=== PATIENT | female | born 1945 | race Caucasian/White ===

== ENCOUNTER → 2018-04-19 11:28 | Outpatient (CLI) | payer OTHER, SELFPAY ==
--- NOTE | 2018-04-19 | DI.MG.S_ITS ---
BILATERAL DIGITAL SCREENING MAMMOGRAM 3D/2D WITH CAD: 04/19/2018 CLINICAL: Routine screening. Family history of breast cancer. Comparison is made to exams dated: 02/01/2017 mammogram, 08/02/2016 mammogram, and 07/07/2016 mammogram - [facility]. There are scattered fibroglandular elements in both breasts. Current study was also evaluated with a Computer Aided Detection (CAD) system. No significant masses, calcifications, or other findings are seen in either breast. There has been no significant interval change. IMPRESSION: NEGATIVE There is no mammographic evidence of malignancy. A 1 year screening mammogram is recommended. This exam was interpreted at Station ID: [id number]. NOTE: For mammograms, a report in lay terms will be sent to the patient. Approximately 15% of breast malignancies will not be visualized mammographically. In the management of a palpable breast mass, a negative mammogram must not discourage biopsy of a clinically suspicious lesion. Electronically Signed By: Raman simmons/dwayne:04/19/2018 16:50:39 letter sent: Normal Exam ACR BI-RADS Category 1: Negative 3341F
== END ==
PROVIDERS: Family Provider Family Medicine; Visit Provider Family Medicine
DX: Z12.31 Encounter for screening mammogram for malignant neoplasm of breast (principal); Z80.3 Family history of malignant neoplasm of breast
CPT/HCPCS: 77063; 77067

== ENCOUNTER → 2019-02-19 14:26 | Outpatient (CLI) | payer OTHER, SELFPAY ==
--- NOTE | 2019-02-19 14:31 | DI.RAD.S_ITS ---
PROCEDURE: XR LUMBAR SPINE 2-3V INDICATIONS: lumbar back pain TECHNIQUE: 3 views of the lumbar spine were acquired. COMPARISON: [facility], , -SPINE 2-3 VIEWS, 08/30/2012, 7:34. FINDINGS: Bones: 5 gyz-lio-grwouki vertebrae are present. There is abnormal levoscoliotic bony alignment centered at L3. No vertebral body compression fractures. No suspicious bony lesions. Soft tissues: Overlying bowel gas pattern is normal. No suspicious soft tissue calcifications. IMPRESSION: Degenerative disc disease and levoscoliosis appears mildly worsened from the comparison plain film imaging from 08/30/12. No compression fracture has developed. Spinal and foraminal stenosis would be suspected from L3 inferiorly. Dictated by: Dirk Morris M.D. on 02/19/2019 at 15:46 Approved by: Dirk Morris M.D. on 02/19/2019 at 15:47
[2019-02-19 17:05] LABS: Add Manual Diff / Slide Review NO; Basophils Absolute Auto 0 /uL (0-100); Basophils Percent Auto 0.5 % (0-2); Eosinophils Absolute Auto 100 /uL (0-450); Eosinophils Percent Auto 2.6 % (2-4); Hematocrit 35.1 % (36-46); Hemoglobin 11.9 g/dL (12.0-16.0); Lymphocytes Absolute Auto 1600 /uL (1100-4500); Lymphocytes Percent Auto 30.4 % (25-40); Mean Corpuscular HGB Conc 33.7 % (30-36); Mean Corpuscular Hemoglobin 32.7 PG (26-34); Mean Corpuscular Volume 97.1 fL (80-100); Monocytes Absolute Auto 600 /uL (0-900); Monocytes Percent Auto 12.1 % (3-14); Neutrophils Absolute Auto 2900 /uL (1500-7000); Neutrophils Percent Auto 54.4 % (50-75); Platelet Count 161 X10^3/uL (150-400); Red Blood Cell Count 3.62 X10^6/uL (4.0-5.2); White Blood Cell Count 5.3 X10^3/uL (4.5-11.0)
[2019-02-19 17:22] LABS: HEMOLYSIS < 15 (0-50); Iron 61 ug/dL (37-170)
[2019-02-19 17:37] LABS: Percent Iron Saturation 16 % (15-50); Total Iron Binding Capacity 384 ug/dL (265-497); Transferrin 313 mg/dL (206-381)
[2019-02-19 18:04] LABS: Ferritin 12.6 ng/mL (11.1-264)
[2019-02-19 18:18] LABS: Vitamin B12 840 pg/mL (239-931)
== END ==
PROVIDERS: Family Provider Family Medicine; PCP Family Medicine; Visit Provider Family Medicine
DX: M54.5 Low back pain (principal); M51.36 Other intervertebral disc degeneration, lumbar region; M41.86 Other forms of scoliosis, lumbar region; G89.29 Other chronic pain
CPT/HCPCS: 36415; 72100; 82607; 82728; 83540; 83550; 85025

== ENCOUNTER → 2019-03-08 14:38 | Outpatient (CLI) | payer OTHER, SELFPAY ==
--- NOTE | 2019-03-08 | DI.MRI.S_ITS ---
PROCEDURE: MR LUMBAR SPINE WO CON INDICATIONS: BACK PAIN TECHNIQUE: Noncontrast sagittal T1 spin echo and T2 fast echo, sagittal STIR, axial T1 and T2 fast spin echo through the lumbar spine. In cases with scoliosis, additional coronal T2 fast spin echo may be performed. COMPARISON: [facility], CR, XR LUMBAR SPINE 2-3V, 02/19/2019, 14:38. FINDINGS: Image quality: Diagnostic Alignment and Curvature: Moderate levoconvex lumbar scoliosis is seen. Minimal retrolisthesis is seen at the L3-L4 level. Minimal anterolisthesis is seen at L4-L5. Bone Marrow: Marrow is of normal overall signal. No acute vertebral body compression fractures. Spinal Cord: Conus medullaris terminates at the T12-L1 level. Visualized cord demonstrates normal signal and size. Paraspinous Soft Tissues: No paravertebral masses. T12-L1: Moderate loss of disc height is seen. Loss of disc signal is seen. No significant disc bulge is seen. No neural foraminal or central canal narrowing can be seen. L1-L2: Moderate loss of disc height is seen. Loss of disc signal is seen. Reactive marrow endplate changes are seen which are hypointense on T1-weighted imaging and hyperintense on T2 weighted imaging, which is most consistent with edema (Modic type I changes). Moderate disc bulge is seen, which is eccentric to the left. There is a central/left disc protrusion seen. Pwgp-dl-jjmsgovd facet hypertrophy is seen, with associated moderate hypertrophy of the ligamentum. There is moderate to severe left-sided neural foraminal narrowing, with associated compression upon the exiting left L1 nerve root. Mild to moderate right-sided neural foraminal narrowing is seen. Djnk-mm-zmstllse central canal narrowing is seen. L2-L3: Moderate to severe loss of disc height is seen at this level. There is loss of disc signal. Reactive marrow endplate changes are seen which are hypointense on T1-weighted imaging and hyperintense on T2 weighted imaging, which is most consistent with edema (Modic type I changes). At least moderate disc bulge is seen. Moderate facet joint hypertrophy is seen. There is associated moderate hypertrophy of the ligamentum flavum. Moderate bilateral neural foraminal narrowing is seen. Moderate central canal narrowing is seen. L3-L4: Moderate to severe loss of disc height and disc signal are seen. Moderate disc bulge is seen, which is eccentric to the right. There is moderate left-sided and moderate to severe right-sided neural foraminal narrowing seen. There is a degree of compression seen upon the exiting right L3 nerve root. Zgll-dh-nudroqse central canal narrowing is seen. L4-L5: Moderate to severe loss of disc height and disc signal are seen at this level. Moderate disc bulge is seen, which is eccentric to the right. Moderate facet joint hypertrophy is seen. There is at least moderate bilateral nerve narrowing seen. There is a degree of compression seen upon the exiting nerve roots. Moderate central canal narrowing is seen. L5-S1: The disc height is well-preserved. Loss of disc signal is seen at this level. Mild generalized disc bulge is seen. There is moderate right-sided and moderate to severe left-sided facet hypertrophy seen. There is mild right-sided and moderate to severe left-sided neural foraminal narrowing seen. There is a degree of compression seen upon the exiting left L5 nerve root. Minimal to mild central canal narrowing is seen. IMPRESSION: Moderate dextroconvex scoliosis is seen. Multiple levels of relatively prominent lumbar spine degenerative change are seen. Dictated by: Preston Thomason M.D. on 03/10/2019 at 8:19 Approved by: Preston Thomason M.D. on 03/10/2019 at 8:25
== END ==
PROVIDERS: Family Provider Family Medicine; PCP Family Medicine; Visit Provider Physical Medicine & Rehabilitation
DX: M54.9 Dorsalgia, unspecified (principal); M47.816 Spondylosis without myelopathy or radiculopathy, lumbar region; M47.817 Spondylosis without myelopathy or radiculopathy, lumbosacral region; M41.86 Other forms of scoliosis, lumbar region
CPT/HCPCS: 72148

== ENCOUNTER → 2019-04-25 09:00 | Outpatient (CLI) | payer OTHER, SELFPAY ==
--- NOTE | 2019-04-25 | DI.MG.S_ITS ---
BILATERAL DIGITAL SCREENING MAMMOGRAM 3D/2D WITH CAD: 04/25/2019 CLINICAL: Routine screening. Family history of breast cancer. Comparison is made to exams dated: 04/19/2018 mammogram, 02/01/2017 mammogram, 08/02/2016 mammogram, 06/23/2016 mammogram, 09/07/2014 mammogram, and 08/28/2013 mammogram - [facility]. There are scattered fibroglandular elements in both breasts. Current study was also evaluated with a Computer Aided Detection (CAD) system. There are benign vascular calcifications in both breasts. There also is a benign biopsy clip in the right breast. No significant masses, calcifications, or other findings are seen in either breast. There has been no significant interval change. IMPRESSION: There is no mammographic evidence of malignancy. A 1 year screening mammogram is recommended. This exam was interpreted at Station ID: [id number]. NOTE: For mammograms, a report in lay terms will be sent to the patient. Approximately 15% of breast malignancies will not be visualized mammographically. In the management of a palpable breast mass, a negative mammogram must not discourage biopsy of a clinically suspicious lesion. Electronically Signed By: Peyman mcduffie/dwayne:04/25/2019 13:31:34 letter sent: Normal Exam ACR BI-RADS Category 2: Benign Finding(s) 3342F
== END ==
PROVIDERS: PCP Family Medicine; Visit Provider Family Medicine
DX: Z12.31 Encounter for screening mammogram for malignant neoplasm of breast (principal); Z80.3 Family history of malignant neoplasm of breast
CPT/HCPCS: 77063; 77067

== ENCOUNTER → 2020-06-03 11:35 | Outpatient (CLI) | payer MEDICARE, SELFPAY ==
--- NOTE | 2020-06-03 11:37 | DI.RAD.S_ITS ---
PROCEDURE: XR HIP W PEL IF DONE LT 2V INDICATIONS: left hip pain TECHNIQUE: AP pelvis with lateral view(s) of the left hip(s). COMPARISON: [facility], , HIP 2V LEFT, 08/30/2012, 7:34. [facility], , HIP 2V LEFT, 11/12/2008, 13:57. FINDINGS: Bones: No fractures or dislocations. Pelvic ring appears intact. No suspicious bony lesions. Soft tissues: The visualized bowel gas pattern is normal. No suspicious soft tissue calcifications. IMPRESSION: No trauma found, source of left hip pain not seen. Dictated by: Dirk Morris M.D. on 06/03/2020 at 12:22 Approved by: Dirk Morris M.D. on 06/03/2020 at 12:22
== END ==
PROVIDERS: PCP Family Medicine; Referring Provider Family Medicine; Visit Provider Family Medicine
DX: M25.552 Pain in left hip (principal)
CPT/HCPCS: 73502

== ENCOUNTER → 2020-06-30 13:00 | Outpatient (CLI) | payer MEDICARE, SELFPAY ==
--- NOTE | 2020-06-30 14:04 | DIET.PN ---
Dietary Progress Note Assessment: 74y F referred to nutrition for HLD c PAD Pt has had elevated cholesterol for several years, but is going up, recent PAD scan was positive for reduced circulation in L leg. Pt has px in L leg, was seeing music director weekly, now seeing PT 2x/w. Pt has been avoiding dairy, choosing plant based options instead which has led to some weight loss that pt is happy about. Pt walks 2mi/d in late afternoon. Was going to pool 5d/w but this stopped because of Covid19. Usual Day: wakes 530am drinks glass water and 2c coffee c homemade keto creamer (containing cinnamon and turmeric) L: apple or celery c [place] pb D(530): large salad c cucumbers, tomatoes, nunes peppers, leftover salmon or soup such as homemade minestrone or vegetable soup HT: 5'5 WT: 134# (intentional 5-10# wt loss in past 8mo) BMI: 22.3 Labs: TC 225 H, LDL 140 H, HDL 71 Nutrition Diagnosis: altered nutrition related laboratory values (lipid panel) r/t inadequate intake of soluble fiber aeb TC 225, LDL 140, pt diet recall is healthy yet not hitting sarah for fiber intake. Interventions: 1. Discussed Cholesterol, importance, function, factors influencing elevated levels and how to reduce levels through lifestyle. 2. Discussed high saturated fat and cholesterol foods, to reduce saturated fat and moderate high cholesterol foods in pts case: shrimp and eggs. 3. Discussed soluble fiber, food sources, and how it can reduce LDL. Pt goal is 21g/d and will log food for 1w to assess current fiber intake and start adding in more like beans, rayshawn seeds, flax seed. EER: 21g fiber per day Pt planning to take online community ed nutrition classes offered by [facility]
== END ==
PROVIDERS: PCP Family Medicine; Referring Provider Family Medicine; Visit Provider Family Medicine
DX: E78.5 Hyperlipidemia, unspecified (principal); M79.605 Pain in left leg; Z71.3 Dietary counseling and surveillance
CPT/HCPCS: 97802

== ENCOUNTER → 2020-07-24 13:19 | Outpatient (CLI) | payer MEDICARE, SELFPAY ==
[2020-07-26 09:25] LABS: COVID19 Sendout Not Detected (Not Detect)
== END ==
PROVIDERS: PCP Family Medicine; Visit Provider Nurse Practitioner
DX: Z11.59 Encounter for screening for other viral diseases (principal)
CPT/HCPCS: 87635

== ENCOUNTER → 2020-08-05 06:37 | Outpatient (CLI) | payer MEDICARE, SELFPAY ==
[2020-08-05 09:44] LABS: Cholesterol 116 mg/dL (140-199); HDL Cholesterol 64 mg/dL (40-60); LDL Cholesterol Calculated 37 mg/dL (<100); Triglycerides 76 mg/dL (35-150)
== END ==
PROVIDERS: PCP Family Medicine; Referring Provider Family Medicine; Visit Provider Family Medicine
DX: E78.5 Hyperlipidemia, unspecified (principal); M25.552 Pain in left hip
CPT/HCPCS: 36415; 80061

== ENCOUNTER → 2020-08-23 09:26 | Outpatient (CLI) | payer MEDICARE, SELFPAY ==
[2020-08-23 23:10] LABS: COVID19 Sendout Not Detected (Not Detect)
== END ==
PROVIDERS: PCP Family Medicine; Visit Provider Physician Assistant
DX: Z11.59 Encounter for screening for other viral diseases (principal)
CPT/HCPCS: 87635

== ENCOUNTER 2020-08-26 08:20 | Outpatient (CLI) | payer MEDICARE, SELFPAY ==
[2020-08-26] VITALS (8 sets, daily range): BP systolic 121–164; BP diastolic 58–95; PULSE 61–69; RESP 10–17; TEMP 36.5; O2SAT 95–100
--- NOTE | 2020-08-26 08:23 | DI.RAD.S_ITS ---
PROCEDURE: PAIN L/SI FACET INJ/BLK 1STL INDICATIONS: SPONDYLOSIS COMPARISON: [facility], , LUMBAR SPINE INTERIAMINAR, 05/05/2019, 10:07. FINDINGS: Fluoroscopic spot filming was performed to verify placement of spinal needles on the left at the L3, L4, L5, and S1 level(s), as labeled on the films. Appropriate location(s) of the needle tip(s) was confirmed by injection of iodinated contrast. IMPRESSION: Intraprocedural examination within normal limits. Dictated by: Preston Thomason M.D. on 08/26/2020 at 9:35 Approved by: Preston Thomason M.D. on 08/26/2020 at 9:36
[2020-08-26] MEDS: MIDAZOLAM 5 MG/5 ML VIAL IV (09:35)
[2020-08-26] MEDS: fentaNYL 100 MCG/2 ML INJ 50 MCG IV (09:35)
[2020-08-26] MEDS: IOPAMIDOL 15 ML VIAL 3 ML INJ (09:43)
[2020-08-26] MEDS: BUPIVACAINE 0.5% (PF) VIAL 5 ML INJ (09:43)
[2020-08-26] MEDS: LIDOCAINE 1% 20 ML 10 ML INJ (09:43)
--- NOTE | 2020-08-26 09:50 | PM.PROC.IR.1 ---
Date/Time/Diagnoses Date of procedure: 08/26/20 Time of procedure: 09:50 Pre-procedure diagnosis: 1. FACET ARTHROPATHY Post-procedure diagnosis: same Procedure Notes Procedure: 1. Left L3, L4, L5 and S1 MB BLOCKS Indications: Jany is referred by Dr. Israel for treatment of Left Axial LBP. Physician: Lokesh Rod Total Fluoroscopy time (seconds): 6 Total sedation minutes: 13 Complications: none Procedure in detail & Post-procedure care: DESCRIPTION OF PROCEDURE Fluoroscopically guided, contrast-controlled left L4, L5 and S1 medial branch blocks with 0.5cc of 0.5% Marcaine. Following review of allergy and review of potential side effects and complications, including, but not necessarily limited to, infection, allergic reaction, local tissue breakdown, nerve injury, paralysis, stroke and possible , the patient indicated that the patient understood and agreed to proceed. An informed consent document was signed by the patient, witnessed by a nurse, and placed in the patient's chart. After review of previous anaesthesic history and IV conscious sedation the patient was deemed safe to proceed with today?s procedure with IV conscious sedation as ASA class II designation. Safety time-out was performed to confirm patient ID, procedure to be performed and site of procedure. IV sedation was accomplished with a combination of 2mg of Versed and 50mcg of Fentanyl was administered by the RN after DO order, titrated to patient comfort during the course of the procedure while the patient remained responsive to all verbal commands. In the prone position, following sterile prep and drape of the lumbar region, the left L4, L5 and S1 anatomical location of the medial branch of the dorsal ramus was identified fluoroscopically. Subsequently an anesthetic skin wheal using 1% lidocaine solution was initiated at each of the anatomical spots. Subsequently then a 22-gauge 3.5-inch spinal needle was atraumatically introduced and advanced under fluoroscopic guidance at each of the corresponding sites at the left L4, L5 and S1 MB. After negative aspiration, 0.2cc of Isovue 200 was injected, confirming placement without vascular or intrathecal uptake. Subsequently then 0.5cc of 0.5% Marcaine solution was injected at each of the corresponding sites at the left L4, L5 and S1 medial branch locations. The patient tolerated the procedure well without signs or symptoms of complications. The patient tolerated the procedure well without signs or symptoms of complications prior to transfer to the recovery area continued monitoring without incident. Post-procedure, the patient was monitored initiating provocative activities to measure the amount of relief from block of the facetogenic pain. The patient reported a VAS of 7 prior to the procedure and a post-procedure VAS of 1. It has been a pleasure to assist in the diagnostic and therapeutic care of your patient. POST OP INSTRUCTIONS The patient was provided with a Pain Log to complete over the next several hours and subsequent days prior to the patient's follow up with the ordering physician. If the patient has construction lineman relief to the solution applied, then they may be a candidate for medial branch rhizotomy. The patient is aware, was provided, once again, with a Pain Log and will follow up with the referring physician for review and clinical correlation.
--- NOTE | 2020-08-26 10:20 | PC.NURSE ---
Pt ambulated independently prior to Discharge. IV removed. Tolerated cookies and water. 0/10 pain.
== END 2020-08-26 10:10 | disposition home or self-care (01) ==
LOC: RAD 08:22
PROVIDERS: PCP Family Medicine; Referring Provider Physical Medicine & Rehabilitation; Visit Provider Physical Medicine & Rehabilitation
DX: M47.816 Spondylosis without myelopathy or radiculopathy, lumbar region (principal); M47.817 Spondylosis without myelopathy or radiculopathy, lumbosacral region; M54.5 Low back pain
CPT/HCPCS: 64493; 64494; 64495; 99152; J2250; J3010

== ENCOUNTER → 2020-09-09 08:14 | Outpatient (CLI) | payer MEDICARE, SELFPAY ==
--- NOTE | 2020-09-09 08:18 | DI.RAD.S_ITS ---
PROCEDURE: XR LUMBAR SPINE MIN 4V INDICATIONS: low back pain TECHNIQUE: 5 views of the lumbar spine were acquired. COMPARISON: [facility], CR, XR LUMBAR SPINE 2-3V, 02/19/2019, 14:38. [facility], CR, L-SPINE 2-3 VIEWS, 08/30/2012, 7:34. FINDINGS: Bones: Five nonrib-bearing vertebrae are present. There is prominent levo scoliotic bony alignment centered at L3. No vertebral body compression fractures. No suspicious bony lesions. Degenerative disc disease along the middle and lower thirds of the lumbosacral spine is moderately severe. Facet osteoarthritis also is moderately severe and osteophytes project to narrow the neural foramen. The exact degree of narrowing is not established due to overlap of bowel and osteophytic margins over much of the lumbosacral spine. Soft tissues: Overlying bowel gas pattern is normal. No suspicious soft tissue calcifications. Oblique images: No pars defects. IMPRESSION: Moderately severe to severe degenerative disc disease associated with convex leftward scoliosis and prominent osteophyte formation along the middle and lower thirds of the lumbosacral spine. As discussed the oblique views do not allow accurate assessment for degree of spinal and foraminal stenosis due to overlap of osteophytes and bowel content. Dictated by: Dirk Morris M.D. on 09/09/2020 at 9:08 Approved by: Dirk Morris M.D. on 09/09/2020 at 9:09
== END ==
PROVIDERS: PCP Family Medicine; Referring Provider Physical Medicine & Rehabilitation; Visit Provider Physical Medicine & Rehabilitation
DX: M54.5 Low back pain (principal); M25.552 Pain in left hip; M47.817 Spondylosis without myelopathy or radiculopathy, lumbosacral region; M51.36 Other intervertebral disc degeneration, lumbar region; M41.86 Other forms of scoliosis, lumbar region; M41.9 Scoliosis, unspecified
CPT/HCPCS: 72110; 99214

== ENCOUNTER → 2020-09-27 10:46 | Outpatient (CLI) | payer MEDICARE, SELFPAY ==
[2020-09-27 12:38] LABS: COVID19 -Nasal RAPID Negative (Negative)
== END ==
PROVIDERS: PCP Family Medicine; Visit Provider Physical Medicine & Rehabilitation
DX: Z11.59 Encounter for screening for other viral diseases (principal)
CPT/HCPCS: 87635; C9803

== ENCOUNTER 2020-09-28 07:34 | Outpatient (CLI) | payer MEDICARE, SELFPAY ==
[2020-09-28] VITALS (8 sets, daily range): BP systolic 141–172; BP diastolic 63–81; PULSE 52–66; RESP 11–17; TEMP 36.1; O2SAT 99–100
--- NOTE | 2020-09-28 07:35 | DI.RAD.S_ITS ---
PROCEDURE: PAIN SI JOINT INJECTION INDICATIONS: SACROCOCCYGEAL DISORDER COMPARISON: None. FINDINGS: Fluoroscopic spot filming was performed to verify placement of spinal needles at the left inferior sacroiliac joint level, as labeled on the films. Appropriate location(s) of the needle tip(s) was confirmed by injection of iodinated contrast. IMPRESSION: Normal needle tip localization for left inferior sacroiliac joint steroid injection. Dictated by: Dirk Morris M.D. on 09/28/2020 at 9:18 Approved by: Dirk Morris M.D. on 09/28/2020 at 9:19
[2020-09-28] MEDS: MIDAZOLAM 5 MG/5 ML VIAL IV (08:25)
[2020-09-28] MEDS: BETAMETHASONE 30 MG/5 ML MDV 12 MG INJ (08:35)
[2020-09-28] MEDS: IOPAMIDOL 15 ML VIAL 3 ML INJ (08:35)
[2020-09-28] MEDS: BUPIVACAINE 0.5% (PF) VIAL 2 ML INJ (08:35)
--- NOTE | 2020-09-28 08:37 | PM.PROC.IR.1 ---
Date/Time/Diagnoses Date of procedure: 09/28/20 Time of procedure: 08:37 Pre-procedure diagnosis: Sacroiliac Joint Pain/DJD Post-procedure diagnosis: same Procedure Notes Procedure: Fluoroscopically guided contrast controlled left sacroiliac joint injection Indications: Jany is referred by Dr. Israel for treatment of left sacroiliac joint DJD Physician: Lokesh Rod Total Fluoroscopy time (seconds): 5 Total sedation minutes: 10 Complications: none Procedure in detail & Post-procedure care: DESCRIPTION OF PROCEDURE Fluoroscopic guided, contrast controlled left sacroiliac joint injection Following review of allergies and review of potential side effects and complications, including, but not necessarily limited to, infection, allergic reaction, local tissue breakdown, temporary as well as permanent nerve injury, paralysis, stroke and possible , the patient indicated that they understood and agreed to proceed. An informed consent was signed by the patient, witnessed by a nurse, and placed in the patient's chart. Additionally, other treatment options including modalities, medications, and physical therapy were reviewed with the patient. After review of previous anaesthesic history and IV conscious sedation the patient was deemed safe to proceed with today?s procedure with IV conscious sedation as ASA class II designation. Safety time-out was performed to confirm patient ID, procedure to be performed and site of procedure. IV sedation was accomplished with a combination of 2mg of Versed administered by the RN after DO order, titrated to patient comfort during the course of the procedure while the patient remained responsive to all verbal commands. In the prone position following sterile prep and drape of the pelvic region, the hyper lucency on in the inferior aspect of the left sacroiliac joint was identified fluoroscopically the skin was anesthetized be a 25 gauge 1 eventual with approximately 2cc of 1% lidocaine solution. At this point, a 22 gauge 3inch spinal needle was atraumatically introduced and advanced under fluoroscopic guidance into the inferior aspect of the left sacroiliac joint. Following negative aspiration, approximately 0.3cc of Isovue-300 was injected confirming intra-articular placement without vascular uptake. Radiographic data, including multiple fluoroscopic views of the pelvis, reveals a spinal needle in the left sacroiliac joint hyper lucent zone. Subsequent view show flow contrast tear superiorly and inferiorly within the joint capsule without vascular intrathecal uptake. At this point a total of 1cc or 0.5% Marcaine was combined with 1cc of 6mg of betamethasone was injected without incident. The patient tolerated the procedure well without signs or symptoms of complications prior to transfer to the recovery area for further monitoring. The patient was then transferred to the recovery area with a bur observed for an appropriate time after the injection. The patient reverted a vas score of 7 prior to the procedure and postprocedure vas of 1. POSTOP INSTRUCTIONS The patient was provided with a pain like to continue to record the patient's response to the target specific procedure prior to the patient's follow-up visit with the referring physician. Additionally, specific post injection care instructions and a contact number to our office were provided if concerns arise regarding the possible complications associated with procedure are suspected.
== END 2020-09-28 09:02 | disposition home or self-care (01) ==
LOC: RAD 07:34
PROVIDERS: PCP Family Medicine; Referring Provider Family Medicine; Visit Provider Physical Medicine & Rehabilitation
DX: M53.3 Sacrococcygeal disorders, not elsewhere classified (principal); M46.1 Sacroiliitis, not elsewhere classified
CPT/HCPCS: 27096; 99152; J0702; J2250; J3010

== ENCOUNTER → 2020-12-13 07:59 | Outpatient (CLI) | payer MEDICARE, SELFPAY ==
--- NOTE | 2020-12-13 08:01 | DI.MG.S_ITS ---
BILATERAL DIGITAL SCREENING MAMMOGRAM 3D/2D WITH CAD: 12/13/2020 CLINICAL: Routine screening. Family history of breast cancer. Comparison is made to exams dated: 04/25/2019 mammogram, 04/19/2018 mammogram, and 06/23/2016 mammogram - [facility]. There are scattered fibroglandular elements in both breasts. Current study was also evaluated with a Computer Aided Detection (CAD) system. There are benign vascular calcifications in both breasts. There also is a biopsy clip in the right breast. No significant masses, calcifications, or other findings are seen in either breast. There has been no significant interval change. IMPRESSION: BENIGN There is no mammographic evidence of malignancy. A 1 year screening mammogram is recommended. This exam was interpreted at Station ID: [id number]. NOTE: For mammograms, a report in lay terms will be sent to the patient. Approximately 15% of breast malignancies will not be visualized mammographically. In the management of a palpable breast mass, a negative mammogram must not discourage biopsy of a clinically suspicious lesion. Electronically Signed By: Dennys Rogers M.D., jr/dwayne:12/13/2020 08:44:51 letter sent: Normal Exam ACR BI-RADS Category 2: Benign Finding(s) 3342F
[2020-12-13 09:03] LABS: Basophils Absolute Auto 0 /uL (0-100); Basophils Percent Auto 0.6 % (0-2); Eosinophils Absolute Auto 100 /uL (0-450); Eosinophils Percent Auto 2.2 % (2-4); Hematocrit 38.6 % (36-46); Hemoglobin 13.1 g/dL (12.0-16.0); Lymphocytes Absolute Auto 1500 /uL (1100-4500); Lymphocytes Percent Auto 37.4 % (25-40); Mean Corpuscular Hemoglobin 34.3 PG (26-34); Monocytes Absolute Auto 1100 /uL (0-900); Monocytes Percent Auto 28.3 % (3-14); Neutrophils Absolute Auto 1300 /uL (1500-7000); Neutrophils Percent Auto 31.5 % (50-75); Platelet Count 118 X10^3/uL (150-400); Red Blood Cell Count 3.82 X10^6/uL (4.0-5.2); Red Cell Distribution Width 13.5 % (11.6-14.8)
[2020-12-13 09:06] LABS: Add Manual Diff / Slide Review SLIDE REVIEW
[2020-12-13 09:20] LABS: Alanine Aminotransferase 20 IU/L (<35); Albumin 4.1 g/dL (3.5-5.0); Albumin Globulin Ratio 1.5 (1.0-2.8); Alkaline Phosphatase 65 U/L (38-126); Aspartate Aminotransferase 37 IU/L (14-36); BUN Creatinine Ratio 26.7 (6-22); Bilirubin Total 0.3 mg/dL (0.2-1.3); Blood Urea Nitrogen 20 mg/dL (7-17); Carbon Dioxide 32 mmol/L (22-32); Chloride 102 mmol/L (98-107); Cholesterol 150 mg/dL (140-199); Estimated Glomerular Filt Rate > 60.0 mL/min (>60); Globulin 2.8 g/dL (1.7-4.1); Glucose 100 mg/dL (80-110); HDL Cholesterol 64 mg/dL (40-60); HEMOLYSIS < 15 (0-50); LDL Cholesterol Calculated 68 mg/dL (<100); Potassium 4.4 mmol/L (3.4-5.1); Sodium 136 mmol/L (137-145); Total Protein 6.9 g/dL (6.3-8.2); Triglycerides 91 mg/dL (35-150)
[2020-12-13 09:46] LABS: TSH w/ Reflex to FT4 1.86 uIU/mL (0.47-4.68)
[2020-12-13 12:56] LABS: Macrocytosis 2+; Platelet Estimate Decreased on smear
== END ==
PROVIDERS: PCP Family Medicine; Referring Provider Family Medicine; Visit Provider Family Medicine
DX: Z12.31 Encounter for screening mammogram for malignant neoplasm of breast (principal); Z80.3 Family history of malignant neoplasm of breast; E78.5 Hyperlipidemia, unspecified; G47.00 Insomnia, unspecified; I70.209 Unspecified atherosclerosis of native arteries of extremities, unspecified extremity
CPT/HCPCS: 36415; 77063; 77067; 80053; 80061; 84443; 85025

== ENCOUNTER → 2021-10-17 09:47 | Outpatient (CLI) | payer MEDICARE, SELFPAY ==
--- NOTE | 2021-10-17 09:48 | DI.RAD.S_ITS ---
PROCEDURE: XR DEXA AXIAL SKELETON INDICATIONS: Osteopenia; loss of height, kyphosis COMPARISON: None. FINDINGS: This blank DEXA report has been sent in error by the PACS system. The correct and complete report will be forthcoming in 1-2 days. Thank you for your patience and understanding. Dictated by: Starla Galvan MD, PhD on 10/17/2021 at 16:48 Approved by: Starla Galvan MD, PhD on 10/17/2021 at 16:48
== END ==
PROVIDERS: PCP Family Medicine; Referring Provider Physician Assistant; Visit Provider Physician Assistant
DX: M85.851 Other specified disorders of bone density and structure, right thigh (principal); Z78.0 Asymptomatic menopausal state; M40.209 Unspecified kyphosis, site unspecified; Z87.891 Personal history of nicotine dependence; Z82.62 Family history of osteoporosis
CPT/HCPCS: 77080

== ENCOUNTER → 2021-12-19 08:27 | Outpatient (CLI) | payer MEDICARE, SELFPAY ==
--- NOTE | 2021-12-19 | DI.MG.S_ITS ---
BILATERAL DIGITAL SCREENING MAMMOGRAM 3D/2D WITH CAD: 12/19/2021 CLINICAL: Routine screening. Comparison is made to exams dated: 12/19/2021 mammogram, 04/25/2019 mammogram, 12/13/2020 mammogram, and 04/19/2018 mammogram - [facility]. There are scattered fibroglandular elements in both breasts. Current study was also evaluated with a Computer Aided Detection (CAD) system. There are benign vascular calcifications in both breasts. There also is a biopsy clip in the right breast. No significant masses, calcifications, or other findings are seen in either breast. There has been no significant interval change. IMPRESSION: BENIGN There is no mammographic evidence of malignancy. A 1 year screening mammogram is recommended. This exam was interpreted at Station ID: [id number]. NOTE: For mammograms, a report in lay terms will be sent to the patient. Approximately 15% of breast malignancies will not be visualized mammographically. In the management of a palpable breast mass, a negative mammogram must not discourage biopsy of a clinically suspicious lesion. Electronically Signed By: George Garcia acr/penrad:12/19/2021 12:55:30 letter sent: Normal Exam ACR BI-RADS Category 2: Benign Finding(s) 3342F
== END ==
PROVIDERS: PCP Family Medicine; Referring Provider Family Medicine; Visit Provider Family Medicine
DX: Z12.31 Encounter for screening mammogram for malignant neoplasm of breast (principal)
CPT/HCPCS: 77063; 77067

== ENCOUNTER → 2022-05-16 14:10 | Outpatient (CLI) | payer MEDICARE, SELFPAY ==
--- NOTE | 2022-05-16 14:11 | DI.RAD.S_ITS ---
PROCEDURE: XR SHOULDER LT MIN 2V INDICATIONS: Left anterior shoulder pain TECHNIQUE: <3 views of the shoulder were acquired. COMPARISON: [facility], , SHOULDER MINIMUM 2VIEW RIGHT, 09/04/2007, 14:05. FINDINGS: Bones: No fractures or dislocations. No suspicious bony lesions. Visualized ribs appear intact. Mild acromioclavicular and glenohumeral osteoarthritis. Soft tissues: No suspicious soft tissue calcifications. IMPRESSION: Mild acromioclavicular and glenohumeral osteoarthritis. No acute findings. Dictated by: Chris Sharpe M.D. on 05/17/2022 at 7:06 Approved by: Chris Sharpe M.D. on 05/17/2022 at 7:08
--- NOTE | 2022-05-16 14:11 | DI.MG.S_ITS ---
UNILATERAL LEFT DIGITAL DIAGNOSTIC MAMMOGRAM 3D/2D: 05/16/2022 CLINICAL: Anterior shoulder/axillary mass. Comparison is made to exams dated: 12/19/2021 mammogram, 12/13/2020 mammogram, 04/25/2019 mammogram, and 04/19/2018 mammogram - [facility]. There are scattered fibroglandular elements in left breast. No significant masses, calcifications, or other findings are seen in the breast. IMPRESSION: INCOMPLETE: NEEDS ADDITIONAL IMAGING EVALUATION No mammographic evidence of malignancy. A targeted ultrasound is recommended for the left breast palpable abnormality and will immediately follow. Based on the Tyrer Cuzick model (a risk assessment model) the patient's lifetime risk is 3.9% and her 10 year risk is 0.0%. According to the ACR, ACS, and NCCN guidelines, an annual breast MRI exam along with mammogram is recommended if the patient's lifetime risk is 20% or greater. This exam was interpreted at Station ID: [id number]. NOTE: For mammograms, a report in lay terms will be sent to the patient. Approximately 15% of breast malignancies will not be visualized mammographically. In the management of a palpable breast mass, a negative mammogram must not discourage biopsy of a clinically suspicious lesion. Electronically Signed By: Viet Winkler M.D. slc/:05/16/2022 14:59:41 ACR BI-RADS Category 0: Incomplete 3340F
--- NOTE | 2022-05-16 14:11 | DI.US.S_ITS ---
LIMITED ULTRASOUND OF LEFT BREAST AND AXILLA: 05/16/2022 CLINICAL: Palpable left axilla lump. Comparison is made to exams dated: 05/16/2022 mammogram, 12/19/2021 mammogram, 12/13/2020 mammogram, and 04/25/2019 mammogram - [facility]. Color flow and real-time ultrasound of the left breast axilla were performed. Hassan scale images of the real-time examination were reviewed. There is a 3 cm x 2.9 cm x 0.6 cm oval lipoma with a circumscribed margin in the left axillary tail. This oval lipoma is isoechoic. This correlates as palpated. Color flow imaging demonstrates that there is vascularity present. No significant abnormalities were seen sonographically in the left axilla. IMPRESSION: BENIGN There is no sonographic evidence of malignancy. Palpable abnormality corresponds to a benign 3 cm oval lipoma. Exam findings were conveyed to the patient. Patient is advised to monitor for significant change. Clinical follow-up as needed. A 1 year screening mammogram is recommended. Future imaging is recommended as follows: 12/20/2022 screening mammogram. This exam was interpreted at Station ID: [id number]. Electronically Signed By: Viet Winkler M.D. [facility] [place]/:05/16/2022 15:36:16 Entry: - 05/17/2022 11:18:22 letter sent: Normal Exam Ultrasound BI-RADS: 2 Benign
== END ==
PROVIDERS: PCP Family Medicine; Referring Provider Physician Assistant; Visit Provider Physician Assistant
DX: N63.32 Unspecified lump in axillary tail of the left breast (principal); D17.1 Benign lipomatous neoplasm of skin and subcutaneous tissue of trunk; M25.512 Pain in left shoulder; M19.012 Primary osteoarthritis, left shoulder; R92.8 Other abnormal and inconclusive findings on diagnostic imaging of breast
CPT/HCPCS: 73030; 76882; 77065; G0279

== ENCOUNTER → 2022-07-10 12:33 | Outpatient (CLI) | payer MEDICARE, SELFPAY ==
--- NOTE | 2022-07-10 12:35 | DI.RAD.S_ITS ---
PROCEDURE: XR KNEE LT 3V INDICATIONS: left knee pain TECHNIQUE: 3 views of the knee were acquired. COMPARISON: None. FINDINGS: Bones: No fractures or dislocations. No suspicious bony lesions. Mild medial compartment joint space narrowing. Moderate patellofemoral joint space narrowing. Small joint effusion. Soft tissues: Unremarkable IMPRESSION: Ultm-db-shoqjrgt osteoarthritis. Small joint effusion. Approved by: Antoine Jesus M.D. on 07/10/2022 at 13:59
== END ==
PROVIDERS: PCP Family Medicine; Referring Provider Family Medicine; Visit Provider Family Medicine
DX: M25.562 Pain in left knee (principal); M17.12 Unilateral primary osteoarthritis, left knee; M25.462 Effusion, left knee
CPT/HCPCS: 73562

== ENCOUNTER → 2022-07-26 12:00 | Outpatient (CLI) | payer MEDICARE, SELFPAY ==
[2022-07-26 13:44] LABS: Appearance Urine UA CLOUDY; Color Urine UA ORANGE
[2022-07-26 13:46] LABS: WBC Urine >100/HPF (0-5/HPF)
[2022-07-26 13:47] LABS: Bacteria Urine Many (>30); Culture Indicated Urine Cult Not Indicated; RBC Urine 1-5/HPF (0-5/HPF); Squamous Epithelial Cell Urine 5-10 /HPF (0-5/HPF)
== END ==
PROVIDERS: PCP Family Medicine; Referring Provider Family Medicine; Visit Provider Family Medicine
DX: N39.0 Urinary tract infection, site not specified (principal); N39.41 Urge incontinence
CPT/HCPCS: 81001

== ENCOUNTER → 2022-08-29 14:38 | Outpatient (CLI) | payer MEDICARE, SELFPAY ==
[2022-08-29 15:29] LABS: Appearance Urine UA CLEAR; Bilirubin Urine UA NEGATIVE (NEGATIVE); Color Urine UA YELLOW; Glucose Urine UA NEGATIVE (Negative); Ketones Urine UA TRACE (NEGATIVE); Leukocyte Esterase Urine UA 3+ (NEGATIVE); Nitrite Urine UA POSITIVE (Negative); Occult Blood Urine UA 2+ (Negative); Protein Urine UA TRACE (Negative); Urobilinogen Urine UA 0.2 E.U./dL (0.2)
[2022-08-29 16:08] LABS: Bacteria Urine Moderate (10-30); Culture Indicated Urine Specimen Cultured; RBC Urine 0-1/HPF (0-5/HPF); Squamous Epithelial Cell Urine 1-5 /HPF (0-5/HPF); WBC Urine >100/HPF (0-5/HPF)
== END ==
PROVIDERS: PCP Family Medicine; Referring Provider Family Medicine; Visit Provider Family Medicine
DX: R30.0 Dysuria (principal)
CPT/HCPCS: 81003; 81015; 87077; 87086; 87186

== ENCOUNTER 2022-08-31 07:39 | Emergency (ER) | payer MEDICARE, SELFPAY ==
[2022-08-31] VITALS (7 sets, daily range): BP systolic 152–176; BP diastolic 74–90; PULSE 72–93; RESP 18; TEMP 36.4; O2SAT 95–99; BMI 23.4
--- NOTE | 2022-08-31 07:52 | DI.RAD.S_ITS ---
PROCEDURE: XR CHEST 2V INDICATIONS: weak TECHNIQUE: 2 views of the chest were acquired. COMPARISON: [facility], , CHEST 2 VIEW, 01/21/2012, 12:37. FINDINGS: Surgical changes and devices: None. Lungs and pleura: Lungs are clear. No pleural effusions or pneumothorax. Mediastinum: Mediastinal contours are normal. Heart size is normal. Bones and chest wall: No suspicious bony abnormalities. Soft tissues appear unremarkable. IMPRESSION: No acute cardiopulmonary pathology. Dictated by: Davion Tucker M.D. on 08/31/2022 at 8:22 Approved by: Davion Tucker M.D. on 08/31/2022 at 8:22
--- NOTE | 2022-08-31 07:53 | ED.ABDPAIN ---
HPI - Abdominal Pain General Chief Complaint: Weakness Stated Complaint: bladder infection, hasnt eaten 2days, dehydrated Time Seen by Provider: 08/31/22 07:51 History of Present Illness HPI narrative: 76-year-old female former smoker with early memory issues, urge incontinence, hyperlipidemia, diverticulosis presents with her in the chief complaint of ongoing lower abdominal pain with radiation to her back. She states her symptoms started in June when she was on a road trip and they presented to an emergency department in [place], [place]. At the time she was having urinary complaints such as frequency, urgency and dysuria and was found have a urinary tract infection was placed on antibiotics. Her symptoms had resolved and she recently followed up with her primary care provider and a repeat urine was unremarkable. She started having symptoms return a few days ago and has suprapubic tenderness that seems to be worse when she urinates or palpates. She does have some pain in her lower back. She is had no fever or chills. She does feel weak and has had less to eat and drink recently. She denies runny nose, sore throat or cough. She has no chest pain or shortness of breath. She is minimally nauseated but has had no vomiting or diarrhea. She started having urinary symptoms again and her primary care provider ordered urine yesterday, it clearly notes UTI Related Data Home Medications Medication Instructions Recorded Confirmed ascorbic acid (vitamin C) 1,000 mg 1 g PO DAILY 05/04/22 08/03/22 tablet cholecalciferol (vitamin D3) 25 25 mcg PO DAILY 05/04/22 08/03/22 mcg (1,000 unit) capsule omega 2-dgz-clw-fish oil 500 mg 1 cap PO TID 05/04/22 08/03/22 (200mg-300mg)-1,000 mg capsule vitamin B complex (B 1 tab PO DAILY PRN 05/04/22 08/03/22 Complex-Vitamin B12 tablet) Previous Rx's Medication Instructions Recorded atorvastatin 20 mg tablet 20 mg PO .3 nights/week #90 tabs 07/11/22 amitriptyline 10 mg tablet 10 mg PO BEDTIME #30 tabs 08/03/22 celecoxib 200 mg capsule See Rx Instructions .Route 08/21/22 .COMPLEX #30 caps nitrofurantoin 100 mg PO Q12H 7 days #14 caps 11/02/22 monohydrate/macrocrystals 100 mg capsule cephalexin 500 mg capsule 500 mg PO BID #14 caps 08/31/22 Allergies Allergy/AdvReac Type Severity Reaction Status Date / Time No Known Drug Allergies Allergy Unverified 08/03/22 12:12 Review of Systems Review of Systems Narrative: GENERAL: See HPI HEENT: Denies sinus pain, ear pain, sore throat, difficulty swallowing, dizziness. RESPIRATORY: Denies dyspnea, cough, wheezing, hemoptysis, sputum. CARDIOVASCULAR: Denies chest pain, palpitations, orthopnea, edema, GASTROINTESTINAL: See HPI : See HPI MUSCULOSKELETAL: denies weakness, joint pain, or bony pain SKIN: Denies rash, skin lesions, or other NEUROLOGIC: Denies weakness, headache, numbness, change in speech, confusion, seizures, incoordination. PSYCHIATRIC: No concerning psychosocial issues. 12 point review of systems is negative except for those stated above Patient History Medical History (Updated 08/31/22 @ 08:58 by Tate Paula DO) Alcohol abuse Asthma BCC (basal cell carcinoma of skin) Cervical spine disease Chronic back pain (2011) Excessive daytime sleepiness Facet arthropathy, lumbosacral Foot pain (1998) Impacted cerumen, left ear Kyphosis Lower urinary tract symptoms (LUTS) Lumbar spine pain Obstructive sleep apnea syndrome Oral candidiasis Partial blindness (1996) Polio (195) Postmenopausal atrophic vaginitis Scoliosis Shoulder pain Snoring Urge incontinence Urinary incontinence Surgical History Anesthesia History of cataract removal with insertion of prosthetic lens Status post bunionectomy (~1999) Status post hammer toe correction (~1999) Family History Brother Overdose Father Heart disease Hypertension CAD (coronary artery disease) Myocardial infarction Grandfather Parkinsons Grandmother Dementia Mother Dementia Arthritis Bronchitis Ovarian cancer Grandfather No problems noted. Grandmother No problems noted. Social History marital status: Smoking Status: Former smoker alcohol intake: never substance use type: amphetamines Smoking Status: Former smoker Exam Narrative Exam Narrative: GENERAL: [76] year old patient appears stated age. Well-developed patient, in mild distress. HEAD: Atraumatic. Normocephalic. EYES: Pupils equal round and reactive. Extraocular motions intact. No scleral icterus. No injection or drainage. ENT: Nose without bleeding, purulent drainage. Throat without erythema, tonsillar hypertrophy or exudate. Airway patent. NECK: Trachea midline. Non tender CARDIOVASCULAR: Regular rate and rhythm without murmurs, gallops, or rubs. RESPIRATORY: Clear to auscultation. Breath sounds equal bilaterally. No wheezes, rales, or rhonchi. GASTROINTESTINAL: Abdomen soft, mild suprapubic tenderness to palpation, nondistended. EXTREMITIES: No edema or joint tenderness. BACK: Nontender without deformity or crepitance. No flank tenderness. NEURO: AOx3. SKIN: No rash or erythema of visible areas Initial Vital Signs Initial Vital Signs: Vital Signs Temperature 97.6 F 08/31/22 07:45 Pulse Rate 93 H 08/31/22 07:45 Respiratory Rate 18 08/31/22 07:45 Blood Pressure 176/90 H 08/31/22 07:45 Pulse Oximetry 96 08/31/22 07:45 Oxygen Delivery Method 08/31/22 07:45 Course Orders Ordered: ED Orders 08/31/22 07:50 Complete Blood Count AUTO DIFF Stat Comprehensive Metabolic Panel Stat Lactate (Lactic Acid) Stat Magnesium Stat NT-proBNP (BNP-Adult 18+) Stat Troponin & CK Cardiac Panel Stat 08/31/22 07:52 XR chest 2V Stat EKG-12 Lead Stat 08/31/22 08:00 COVID19 -Nasal RAPID/Pre-Proc Stat 08/31/22 08:50 Blood Culture Stat 08/31/22 09:43 Urinalysis and Microscopic Stat Discontinued Medications Sodium Chloride (Normal Saline 0.9%) 1,000 mls @ 1,000 mls/hr IV BOLUS ONE Stop: 08/31/22 08:50 Last Infusion: 08/31/22 10:19 Dose: 0 mls/hr Documented By: Admin: 08/31/22 08:50 Dose: 1,000 mls/hr Documented By: NANCY Ceftriaxone Sodium 1,000 mg/ (Sodium Chloride) 100 mls @ 200 mls/hr IV NOW ONE Stop: 08/31/22 07:55 Last Infusion: 08/31/22 10:19 Dose: 0 mls/hr Documented By: Admin: 08/31/22 08:50 Dose: 200 mls/hr Documented By: NANCY Vital Signs Vital signs: Vital Signs - 8 hr 08/31/22 07:45 08/31/22 07:46 08/31/22 07:46 Temperature 97.6 F Pulse Rate 93 H 92 H Respiratory Rate 18 Blood Pressure 176/90 H 176/90 H Pulse Oximetry 96 98 Oxygen Delivery Method Room Air 08/31/22 08:00 08/31/22 08:00 08/31/22 08:30 Temperature Pulse Rate 83 73 Respiratory Rate Blood Pressure 156/74 H Pulse Oximetry 96 98 Oxygen Delivery Method 08/31/22 09:00 08/31/22 09:05 08/31/22 09:05 Temperature Pulse Rate 72 77 Respiratory Rate Blood Pressure 152/83 H Pulse Oximetry 95 99 Oxygen Delivery Method 08/31/22 09:30 Temperature Pulse Rate 77 Respiratory Rate Blood Pressure Pulse Oximetry 98 Oxygen Delivery Method MDM - Abdominal Pain Lab Data Result diagrams: 08/31/22 07:50 08/31/22 07:50 Labs: Lab Results 08/31/22 08/31/22 08/31/22 Range/Units 07:50 07:50 07:50 WBC 5.1 (4.5-11.0) X10^3/uL RBC 4.07 (4.0-5.2) X10^6/uL Hgb 13.3 (12.0-16.0) g/dL Hct 39.8 (36-46) % MCV 97.8 (80-100) fL MCH 32.6 (26-34) PG MCHC 33.3 (30-36) % RDW 14.0 (11.6-14.8) % Plt Count 157 (150-400) X10^3/uL Neut % (Auto) 41.9 L (50-75) % Lymph % (Auto) 33.3 (25-40) % [place] % (Auto) 21.7 H (3-14) % Eos % (Auto) 2.2 (2-4) % Baso % (Auto) 0.9 (0-2) % Neut # (Auto) 2200 (5836-7263) /uL Lymph # (Auto) 1700 (5207-3728) /uL [place] # (Auto) 1100 H (0-900) /uL Eos # (Auto) 100 (0-450) /uL Baso # (Auto) 0 (0-100) /uL Sodium 139 (137-145) mmol/L Potassium 3.9 (3.4-5.1) mmol/L Chloride 101 (98-107) mmol/L Carbon Dioxide 25 (22-32) mmol/L BUN 18 H (7-17) mg/dL Creatinine 0.71 (0.52-1.04) mg/dL Estimated GFR > 60 (>60) mL/min BUN/Creatinine Ratio 25.4 H (6-22) Glucose 91 (80-110) mg/dL Lactate 0.9 (0.7-2.1) mmol/L Calcium 9.0 (8.4-10.2) mg/dL Magnesium 2.0 (1.6-2.3) mg/dL Total Bilirubin 0.6 (0.2-1.3) mg/dL AST 30 (14-36) IU/L ALT 20 (<35) IU/L Alkaline Phosphatase 68 (38-126) U/L Total Creatine Kinase 37 (30-135) U/L CK-MB (CK-2) TNP CK-MB (CK-2) Rel Index TNP Troponin I < 0.012 (0.01-0.034) ng/mL NT-Pro-B Natriuret Pep 252 (<450) pg/mL Total Protein 7.6 (6.3-8.2) g/dL Albumin 4.4 (3.5-5.0) g/dL Globulin 3.2 (1.7-4.1) g/dL Albumin/Globulin Ratio 1.4 (1.0-2.8) SARS-CoV-2 (PCR) (Negative) 08/31/22 Range/Units 08:00 WBC (4.5-11.0) X10^3/uL RBC (4.0-5.2) X10^6/uL Hgb (12.0-16.0) g/dL Hct (36-46) % MCV (80-100) fL MCH (26-34) PG MCHC (30-36) % RDW (11.6-14.8) % Plt Count (150-400) X10^3/uL Neut % (Auto) (50-75) % Lymph % (Auto) (25-40) % [place] % (Auto) (3-14) % Eos % (Auto) (2-4) % Baso % (Auto) (0-2) % Neut # (Auto) (6342-6312) /uL Lymph # (Auto) (4801-3279) /uL [place] # (Auto) (0-900) /uL Eos # (Auto) (0-450) /uL Baso # (Auto) (0-100) /uL Sodium (137-145) mmol/L Potassium (3.4-5.1) mmol/L Chloride (98-107) mmol/L Carbon Dioxide (22-32) mmol/L BUN (7-17) mg/dL Creatinine (0.52-1.04) mg/dL Estimated GFR (>60) mL/min BUN/Creatinine Ratio (6-22) Glucose (80-110) mg/dL Lactate (0.7-2.1) mmol/L Calcium (8.4-10.2) mg/dL Magnesium (1.6-2.3) mg/dL Total Bilirubin (0.2-1.3) mg/dL AST (14-36) IU/L ALT (<35) IU/L Alkaline Phosphatase (38-126) U/L Total Creatine Kinase (30-135) U/L CK-MB (CK-2) CK-MB (CK-2) Rel Index Troponin I (0.01-0.034) ng/mL NT-Pro-B Natriuret Pep (<450) pg/mL Total Protein (6.3-8.2) g/dL Albumin (3.5-5.0) g/dL Globulin (1.7-4.1) g/dL Albumin/Globulin Ratio (1.0-2.8) SARS-CoV-2 (PCR) Negative (Negative) Imaging Data Chest x-ray: Radiologist's Impression: [address] [address] XRay Report Signed Patient: Jany Tierney MR#: [id number] : 1945 Acct:[id number] Age/Sex: 76 / F Date of Service: 08/31/22 Loc: ED Accession Number: [id number] ?? Procedure: XR chest 2V Ordering Provider: Tate Paula D.O. PROCEDURE:? XR CHEST 2V ? INDICATIONS:? weak ? TECHNIQUE:? 2 views of the chest were acquired.? ? COMPARISON:? [facility], , CHEST 2 VIEW, 01/21/2012, 12:37. ? FINDINGS:? ? Surgical changes and devices:? None.? ? Lungs and pleura:? Lungs are clear.? No pleural effusions or pneumothorax.? ? Mediastinum:? Mediastinal contours are normal.? Heart size is normal.? ? Bones and chest wall:? No suspicious bony abnormalities.? Soft tissues appear unremarkable.? ? IMPRESSION:? No acute cardiopulmonary pathology. ? ? Dictated by: Davion Tucker M.D. on 08/31/2022 at 8:22 ? ? Approved by: Davion Tucker M.D. on 08/31/2022 at 8:22 ? MDM Narrative Medical decision making narrative: Patient with reassuring history and physical exam and recent urine showing recurrence of UTI. She has no signs of sepsis but given minimal back pain will treat for pyelonephritis. Stable vital signs, pain well controlled and appropriate hydrated. Return precautions discussed and questions answered to her apparent satisfaction Discharge Plan Departure Patient Disposition: Home Clinical Impression: Acute UTI Instructions: DI for Urinary Tract Infection (UTI) Activity Restrictions/Additional Instructions: *You have been diagnosed with [urinary tract infection with possible early pyelonephritis. Thankfully your physical exam, labs, imaging and COVID swab were all very reassuring and there is no indication for hospitalization or other significant intervention] *What to do: *Please continue to take your regular medications as directed. [x ] New medication prescriptions sent to your pharmacy: [[facility] ] [ ] New medication written as a paper prescription [ ] No new medications given *Please follow up with your primary care provider in 2-3 days, call for an appointment. Let them know you were seen in the Emergency Department and that we ask that you be seen in follow up. We will electronically transmit a record of today's note if your PCP is in our system *If you do not have a primary care provider please contact the [facility] Resource line at [phone]. They will ask some questions about your medical history and help get you set up with a doctor in the community. *Return to Emergency Department if you should have any new, worsening or concerning symptoms, such as [fever greater than 101 F, shaking chills, worsening pain, persistent vomiting or other bothersome symptoms] Prescriptions: New cephalexin 500 mg capsule 500 mg PO BID Qty: 14 0RF No Action ascorbic acid (vitamin C) 1,000 mg tablet 1 g PO DAILY cholecalciferol (vitamin D3) 25 mcg (1,000 unit) capsule 25 mcg PO DAILY omega 1-acy-mqr-fish oil 500-1,000 mg capsule 1 cap PO TID vitamin B complex [B Complex-Vitamin B12] Tablet 1 tab PO DAILY PRN amitriptyline 10 mg tablet 10 mg PO BEDTIME Qty: 30 0RF atorvastatin 20 mg tablet 20 mg PO .3 nights/week Qty: 90 3RF celecoxib 200 mg capsule See Rx Instructions .ROUTE .COMPLEX Qty: 30 1RF Dose Instruction: TAKE ONE CAPSULE BY MOUTH TWICE DAILY NEEDED FOR PAIN Rx Instructions: TAKE ONE CAPSULE BY MOUTH TWICE DAILY NEEDED FOR PAIN nitrofurantoin monohyd/m-cryst 100 mg capsule 100 mg PO Q12H 7 Days Qty: 14 0RF Rx Instructions: must administer with a meal/food Referrals: Dennys Israel MD [Primary Care Provider] -
[2022-08-31 08:20] LABS: Add Manual Diff / Slide Review NO; Basophils Absolute Auto 0 /uL (0-100); Basophils Percent Auto 0.9 % (0-2); Eosinophils Absolute Auto 100 /uL (0-450); Eosinophils Percent Auto 2.2 % (2-4); Hematocrit 39.8 % (36-46); Hemoglobin 13.3 g/dL (12.0-16.0); Lymphocytes Absolute Auto 1700 /uL (1100-4500); Lymphocytes Percent Auto 33.3 % (25-40); Mean Corpuscular HGB Conc 33.3 % (30-36); Mean Corpuscular Hemoglobin 32.6 PG (26-34); Mean Corpuscular Volume 97.8 fL (80-100); Monocytes Absolute Auto 1100 /uL (0-900); Monocytes Percent Auto 21.7 % (3-14); Neutrophils Absolute Auto 2200 /uL (1500-7000); Neutrophils Percent Auto 41.9 % (50-75); Platelet Count 157 X10^3/uL (150-400); Red Blood Cell Count 4.07 X10^6/uL (4.0-5.2); White Blood Cell Count 5.1 X10^3/uL (4.5-11.0)
[2022-08-31 08:23] LABS: Alanine Aminotransferase 20 IU/L (<35); Albumin 4.4 g/dL (3.5-5.0); Albumin Globulin Ratio 1.4 (1.0-2.8); Alkaline Phosphatase 68 U/L (38-126); Aspartate Aminotransferase 30 IU/L (14-36); BUN Creatinine Ratio 25.4 (6-22); Bilirubin Total 0.6 mg/dL (0.2-1.3); Blood Urea Nitrogen 18 mg/dL (7-17); Carbon Dioxide 25 mmol/L (22-32); Chloride 101 mmol/L (98-107); Creatine Kinase 37 U/L (30-135); Estimated Glomerular Filt Rate > 60 mL/min (>60); Globulin 3.2 g/dL (1.7-4.1); Glucose 91 mg/dL (80-110); HEMOLYSIS 19 (0-50); Lactate (Lactic Acid) 0.9 mmol/L (0.7-2.1); Potassium 3.9 mmol/L (3.4-5.1); Sodium 139 mmol/L (137-145); Total Protein 7.6 g/dL (6.3-8.2)
[2022-08-31 08:33] LABS: COVID19 -Nasal RAPID Negative (Negative)
[2022-08-31 08:34] LABS: NT-proBNP (BNP-Adult 18+) 252 pg/mL (<450); Troponin I < 0.012 ng/mL (0.01-0.034)
[2022-08-31] MEDS: cefTRIAXone 1,000 MG in SODIUM CHLORIDE 0.9% 100 ML 200 MG IV (08:50)
[2022-08-31] MEDS: SODIUM CHLORIDE 0.9% 1,000 ML 1000 ML IV (08:50)
[2022-08-31 10:42] LABS: Appearance Urine UA SL CLOUDY; Bilirubin Urine UA NEGATIVE (NEGATIVE); Color Urine UA YELLOW; Glucose Urine UA TRACE g/dL (Negative); Ketones Urine UA 1+ (NEGATIVE); Leukocyte Esterase Urine UA 3+ (NEGATIVE); Nitrite Urine UA NEGATIVE (Negative); Occult Blood Urine UA 1+ (Negative); Protein Urine UA NEGATIVE (Negative); Urobilinogen Urine UA 0.2 E.U./dL (0.2)
[2022-08-31 10:46] LABS: pH Urine UA 5.5 (4.5-8.0)
[2022-08-31 10:47] LABS: RBC Urine 1-5/HPF (0-5/HPF); Squamous Epithelial Cell Urine 1-5 /HPF (0-5/HPF); WBC Urine 10-30/HPF (0-5/HPF)
[2022-08-31 10:48] LABS: Bacteria Urine None Seen; Culture Indicated Urine Specimen Cultured
== END 2022-08-31 11:01 | disposition home or self-care (01) ==
PROVIDERS: Emergency Provider Emergency Medicine; PCP Family Medicine
DX: N39.0 Urinary tract infection, site not specified (principal); Z20.822 Contact with and (suspected) exposure to COVID-19
CPT/HCPCS: 36415; 71046; 80053; 81001; 82550; 83605; 83735; 83880; 84484; 85025; 87040; 87086; 87635; 96365; 99284; C9803; J0696

== ENCOUNTER → 2022-09-12 11:36 | Outpatient (CLI) | payer MEDICARE, SELFPAY ==
[2022-09-12 13:04] LABS: Appearance Urine UA Clear; Color Urine UA Yellow; Glucose Urine UA NEGATIVE (Negative); Ketones Urine UA NEGATIVE (NEGATIVE); Occult Blood Urine UA Negative (Negative); Protein Urine UA Negative (Negative)
[2022-09-12 13:05] LABS: Bilirubin Urine UA Negative (NEGATIVE); Leukocyte Esterase Urine UA TRACE (NEGATIVE); Nitrite Urine UA NEGATIVE (Negative); Urobilinogen Urine UA 0.2 E.U./dL (0.2)
[2022-09-12 13:32] LABS: Bacteria Urine Occasional (0-1); Culture Indicated Urine Specimen Cultured; RBC Urine None Seen (0-5/HPF); Squamous Epithelial Cell Urine 1-5 /HPF (0-5/HPF); WBC Urine 1-5/HPF (0-5/HPF)
== END ==
PROVIDERS: PCP Family Medicine; Referring Provider Physician Assistant; Visit Provider Physician Assistant
DX: N39.0 Urinary tract infection, site not specified (principal)
CPT/HCPCS: 81001; 87077; 87086; 87186

== ENCOUNTER → 2022-10-16 09:30 | Outpatient (CLI) | payer MEDICARE, SELFPAY ==
[2022-10-16 10:30] LABS: Appearance Urine UA CLEAR; Bilirubin Urine UA NEGATIVE (NEGATIVE); Color Urine UA YELLOW; Glucose Urine UA NEGATIVE (Negative); Ketones Urine UA NEGATIVE (NEGATIVE); Leukocyte Esterase Urine UA NEGATIVE (NEGATIVE); Nitrite Urine UA NEGATIVE (Negative); Occult Blood Urine UA NEGATIVE (Negative); Protein Urine UA NEGATIVE (Negative); Urobilinogen Urine UA 0.2 E.U./dL (0.2)
[2022-10-16 10:39] LABS: Bacteria Urine None Seen; Culture Indicated Urine Specimen Cultured; RBC Urine None Seen (0-5/HPF); Squamous Epithelial Cell Urine 1-5 /HPF (0-5/HPF); WBC Urine 5-10/HPF (0-5/HPF)
== END ==
PROVIDERS: PCP Family Medicine; Referring Provider Physician Assistant; Visit Provider Physician Assistant
DX: R30.0 Dysuria (principal); N39.0 Urinary tract infection, site not specified
CPT/HCPCS: 81001; 87086

== ENCOUNTER → 2023-02-18 12:08 | Outpatient (CLI) | payer MEDICARE, SELFPAY | PROVIDERS: PCP Family Medicine; Visit Provider Physician Assistant | DX: R10.9 Unspecified abdominal pain (principal) | CPT/HCPCS: 87086 ==

== ENCOUNTER → 2023-05-16 08:33 | Outpatient (CLI) | payer MEDICARE, SELFPAY ==
--- NOTE | 2023-05-16 | DI.MG.S_ITS ---
BILATERAL DIGITAL SCREENING MAMMOGRAM 3D/2D WITH CAD: 05/16/2023 CLINICAL: Routine screening. Family history of breast cancer. Comparison is made to exams dated: 12/19/2021 mammogram, 12/13/2020 mammogram, and 04/25/2019 mammogram - [facility]. Both breasts are heterogeneously dense, which may obscure small masses (category c / 51-75% glandular tissue). Current study was also evaluated with a Computer Aided Detection (CAD) system. There are benign vascular calcifications in both breasts. No significant masses, calcifications, or other findings are seen in either breast. There has been no significant interval change. IMPRESSION: BENIGN There is no mammographic evidence of malignancy. A 1 year screening mammogram is recommended. Based on the Tyrer Cuzick model (a risk assessment model) the patient's lifetime risk is 5.2% and her 10 year risk is 0.0%. According to the ACR, ACS, and NCCN guidelines, an annual breast MRI exam along with mammogram is recommended if the patient's lifetime risk is 20% or greater. This exam was interpreted at Station ID: [id number]. NOTE: For mammograms, a report in lay terms will be sent to the patient. Approximately 15% of breast malignancies will not be visualized mammographically. In the management of a palpable breast mass, a negative mammogram must not discourage biopsy of a clinically suspicious lesion. Electronically Signed By: Nida resendiz/dwayne:05/16/2023 12:00:47 letter sent: Normal Exam ACR BI-RADS Category 2: Benign Finding(s) 3342F
== END ==
PROVIDERS: PCP Family Medicine; Referring Provider Family Medicine; Visit Provider Family Medicine
DX: Z12.31 Encounter for screening mammogram for malignant neoplasm of breast (principal); Z80.3 Family history of malignant neoplasm of breast
CPT/HCPCS: 77063; 77067

== ENCOUNTER → 2023-06-21 09:20 | Outpatient (CLI) | payer MEDICARE, SELFPAY ==
--- NOTE | 2023-06-21 09:21 | DI.RAD.S_ITS ---
PROCEDURE: FL UPPER GI SERIES INDICATIONS: Epigastric pain w/bloating and nausea x 1 year COMPARISON: None. 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 No suspicious abdominal calcifications. Visualized solid organ contours appear normal. S-shaped scoliosis. Esophagus: There is moderately weakened esophageal peristalsis, with a small degree of tertiary contractions. No strictures, extrinsic mass effects, or diverticula. Trace elicited gastroesophageal reflux. Trace hiatal hernia. Stomach: Stomach is normally distensible, without extrinsic mass effects. Pylorus and duodenal bulb demonstrate normal single-contrast morphology. There is ready transit of contrast through the gastric outlet into the small bowel. IMPRESSION: Moderate esophageal dysmotility, likely within limits for age. Trace hiatal hernia and trace reflux. Dictated by: Abel Miles M.D. on 06/24/2023 at 21:13 Approved by: Abel Miles M.D. on 06/24/2023 at 21:15
--- NOTE | 2023-06-21 09:21 | DI.US.S_ITS ---
PROCEDURE: US ABDOMEN COMPLETE INDICATIONS: EPIGASTRIC PAIN X 1 YEAR TECHNIQUE: Real-time scanning was performed of the abdominal and retroperitoneal organs, with image documentation. COMPARISON: [facility], US, ABDOMEN COMPLETE, 06/05/2016, 7:17. FINDINGS: Liver: Liver is normal in size and homogeneous in echotexture. Gallbladder: No cholelithiasis or gallbladder wall thickening. No pericholecystic fluid. Sonographic Davila sign is negative. Biliary ducts: Intrahepatic bile ducts are non-dilated. Extrahepatic bile duct caliber measures 3.1 mm. Normal is 6-7 mm or less in diameter, or 10 mm or less post-cholecystectomy. Pancreas: Partially obscured by overlying bowel. Visualized portions of the pancreas are sonographically normal. Spleen: Spleen is normal in size and homogeneous in echotexture. Kidneys: Kidneys are normal in size and echotexture. Right kidney measures 9.1 cm long; left kidney measures 9.2 cm long. No hydronephrosis or nephrolithiasis. No solid masses. Aorta: Visualized aorta is normal in caliber at less than 3 cm. Iliacs: Proximal common iliac arteries are normal in caliber at less than 2.5 cm. IVC: Intrahepatic inferior vena cava is patent. IMPRESSION: 1. No sonographic abnormality to explain patient's symptoms. 2. Limited visualization of the pancreas on current exam. Cannot exclude presence of previously seen pancreatic body cyst on ultrasound 06/05/2016. Dictated by: Bernarda Cook M.D. on 06/21/2023 at 11:57 Approved by: Bernarda Cook M.D. on 06/21/2023 at 12:04
== END ==
PROVIDERS: PCP Family Medicine; Referring Provider Physician Assistant; Visit Provider Physician Assistant
DX: R10.13 Epigastric pain (principal)
CPT/HCPCS: 74240; 76700

== ENCOUNTER 2023-10-21 08:59 | Emergency (ER) | payer MEDICARE, SELFPAY ==
[2023-10-21] VITALS (10 sets, daily range): BP systolic 179–212; BP diastolic 79–137; PULSE 75–88; RESP 16–20; TEMP 37.3; O2SAT 95–97; BMI 23.9
--- NOTE | 2023-10-21 09:18 | DI.RAD.S_ITS ---
PROCEDURE: XR CHEST 2V INDICATIONS: URI TECHNIQUE: 2 views of the chest were acquired. COMPARISON: [facility], [facility], XR CHEST 2V, 08/31/2022, 7:59. [facility], [facility], CHEST 2 VIEW, 01/21/2012, 12:37. FINDINGS: Surgical changes and devices: None. Lungs and pleura: Mildly prominent interstitium. No dense airspace disease or pleural effusion. Mediastinum: Normal heart size Bones and chest wall: Degenerative changes. IMPRESSION: Questionable mildly prominent interstitium can be seen with atypical infections. Dictated by: Chris Sharpe M.D. on 10/21/2023 at 10:42 Approved by: Chris Sharpe M.D. on 10/21/2023 at 10:44
--- NOTE | 2023-10-21 09:57 | ED_ITS ---
HPI - URI/Sore Throat General Chief Complaint: Upper Respiratory Symptoms Stated Complaint: thinks Bronchitis Time Seen by Provider: 10/21/23 09:44 Source: patient and family Mode of arrival: Ambulatory Limitations: no limitations History of Present Illness HPI Narrative: This is a 77-year-old female with a history dyslipidemia, patient presents with complaint of nasal congestion, cough and subjective fevers for the past 3 days. Patient states she is had myalgias and body aches as well. Denies any headache, no chest pain or pressure. States she feels fatigued with exertion. Patient states some nausea but no vomiting. She denies any diarrhea constipation, she did have urinary frequency quite a few times Sunday night but no dysuria. Patient states she is chronic swelling in her lower extremities but no worse normal. States she is on a statin daily more for circulation issues in her legs. No other prescription medications. Denies surgeries. No known drug allergies. No regular tobacco, alcohol or illicit. Was former smoker [address] Israel is her PCP. Related Data Home Medications Medication Instructions Recorded Confirmed ascorbic acid (vitamin C) 1,000 mg 1 g PO DAILY 05/04/22 06/19/23 tablet cholecalciferol (vitamin D3) 25 25 mcg PO DAILY 05/04/22 06/19/23 mcg (1,000 unit) capsule omega 5-zrs-tnm-fish oil 500 mg 1 cap PO TID 05/04/22 06/19/23 (200mg-300mg)-1,000 mg capsule vitamin B complex (B 1 tab PO DAILY PRN 05/04/22 06/19/23 Complex-Vitamin B12 tablet) Estriol 0.1% 1 g vaginal BEDTIME 09/06/22 06/19/23 Previous Rx's Medication Instructions Recorded celecoxib 200 mg capsule See Rx Instructions .Route 08/21/22 .COMPLEX #30 caps amitriptyline 10 mg tablet See Rx Instructions .Route 11/02/22 .COMPLEX #30 tabs atorvastatin 20 mg tablet 20 mg PO DAILY #90 tabs 08/07/23 amoxicillin 875 mg-potassium 1 tab PO Q12H #14 tabs 10/21/23 clavulanate 125 mg tablet ondansetron 4 mg disintegrating 4 mg PO TID-QID PRN nausea and 10/21/23 tablet vomiting #10 tabs Allergies Allergy/AdvReac Type Severity Reaction Status Date / Time No Known Drug Allergies Allergy Verified 10/21/23 09:24 Review of Systems Review of Systems ROS Unobtainable: All systems reviewed & are unremarkable except as noted in HPI and below Patient History Medical History Impacted cerumen, left ear Kyphosis Urge incontinence Lower urinary tract symptoms (LUTS) Postmenopausal atrophic vaginitis Obstructive sleep apnea syndrome Snoring Excessive daytime sleepiness Facet arthropathy, lumbosacral Oral candidiasis BCC (basal cell carcinoma of skin) Shoulder pain Lumbar spine pain Foot pain (1998) Cervical spine disease Partial blindness (1996) Polio (195) Chronic back pain (2011) Scoliosis Urinary incontinence Asthma Alcohol abuse Surgical History Anesthesia Status post hammer toe correction (~1999) History of cataract removal with insertion of prosthetic lens Status post bunionectomy (~1999) Family History Brother Overdose Father Heart disease Hypertension CAD (coronary artery disease) Myocardial infarction Grandfather Parkinsons Grandmother Dementia Mother Dementia Arthritis Bronchitis Ovarian cancer Grandfather No problems noted. Grandmother No problems noted. Social History marital status: Smoking Status: Former smoker alcohol intake: never substance use type: amphetamines Smoking Status: Former smoker alcohol intake frequency: 0-2 drinks per day Substance Use Type: does not use Exam Narrative Exam Narrative: GEN: Thin well appearing female, alert and oriented x 3, patient appears to be in female distress. Patient feels warm to the touch. HEENT: Atraumatic, pupils are equal round reactive to light, extraocular movements are intact, positive for nasal congestion, there is no conjunctival pallor. Throat is clear without any exudates, erythema, tonsillar enlargement or uvular deviation HEART: Regular rate and rhythm without murmur, clicks, rubs. LUNGS:Lungs clear to auscultation, no wheezes, rales, crackles, chest moves symmetrically ABD:bowel sounds normal, soft, non-tender, no guarding, rebound, rigidity, no masses noted, no hepatosplenomegaly :No CVA tenderness MSCL: Non-tender, no muscle atrophy, muscles strength 5/5 upper and lower extremities, full range of motion. NEURO:CN 2-12 intact, sensation normal SKIN: No rash, no erythema, no other skin changess noted. Initial Vital Signs Initial Vital Signs: Vital Signs Temperature 99.1 F 10/21/23 09:05 Pulse Rate 77 10/21/23 09:05 Respiratory Rate 18 10/21/23 09:05 Blood Pressure 208/92 H 10/21/23 09:05 Pulse Oximetry 97 10/21/23 09:05 Oxygen Delivery Method Room Air 10/21/23 09:05 Course Orders Ordered: ED Orders 10/21/23 09:16 Covid-19 + FLU A/B + RSV - PCR Stat 10/21/23 09:18 XR chest 2V Stat 10/21/23 10:38 Urine Culture Stat Urine Microscopic Stat 10/21/23 11:00 COVID19 -Nasal RAPID Stat Vital Signs Vital signs: Vital Signs - 8 hr 10/21/23 10:23 10/21/23 10:23 10/21/23 10:30 Pulse Rate 79 83 Respiratory Rate Blood Pressure 212/89 H Pulse Oximetry 97 96 Oxygen Delivery Method 10/21/23 10:30 10/21/23 10:40 10/21/23 10:40 Pulse Rate 82 Respiratory Rate Blood Pressure 210/91 H 195/85 H Pulse Oximetry 95 Oxygen Delivery Method 10/21/23 11:00 10/21/23 11:00 10/21/23 11:30 Pulse Rate 80 Respiratory Rate 16 Blood Pressure 197/79 H 179/137 H Pulse Oximetry 97 Oxygen Delivery Method Room Air 10/21/23 11:44 Pulse Rate 85 Respiratory Rate 20 Blood Pressure Pulse Oximetry 95 Oxygen Delivery Method Room Air MDM - URI/Sore Throat Lab Data Labs: Lab Results 10/21/23 10/21/23 10/21/23 Range/Units 09:16 10:38 11:00 Urine RBC 1-5/hpf (0-5/HPF) Urine WBC 1-5/hpf (0-5/HPF) Ur Squamous Epith Cells 0-1 /hpf (0-5/HPF) Urine Bacteria Few (2-10) H (None) Ur Culture Indicated? Specimen cultured SARS-CoV-2 (PCR) TNP Positive H Influenza A (RT-PCR) Flu a negative (NEGATIVE) Influenza B (RT-PCR) Flu b negative (NEGATIVE) RSV (PCR) Negative (Negative) Urine Dip Bedside Urine Glucose Negative Bedside Urine Bilirubin - Negative Bedside Urine Ketone +++ 80 Urine Specific [place] 1.030 Bedside Urine Occult Blood ++ Bedside Urine pH 6.0 Bedside Urine Protein +/- 15 Bedside Urine Urobilinogen - Negative Bedside Urine Nitrite - Negative Bedside Urine Leukocytes ++ 125 Esterase Imaging Data Chest x-ray: Radiologist's Impression: [address] [address] XRay Report Signed Patient: Jany Tierney MR#: [id number] : 1945 Acct:[id number] Age/Sex: 77 / F Date of Service: 10/21/23 Loc: ED Accession Number: [id number] Procedure: XR chest 2V Ordering Provider: Stephanie Farrell D.O. PROCEDURE: XR CHEST 2V INDICATIONS: URI TECHNIQUE: 2 views of the chest were acquired. COMPARISON: Located Within [facility], CR, XR CHEST 2V, 08/31/2022, 7:59. Located Within [facility], CR, CHEST 2 VIEW, 01/21/2012, 12:37. FINDINGS: Surgical changes and devices: None. Lungs and pleura: Mildly prominent interstitium. No dense airspace disease or pleural effusion. Mediastinum: Normal heart size Bones and chest wall: Degenerative changes. IMPRESSION: Questionable mildly prominent interstitium can be seen with atypical infections. Dictated by: Chris Sharpe M.D. on 10/21/2023 at 10:42 Approved by: Chris Sharpe M.D. on 10/21/2023 at 10:44 [facility] Narrative Medical decision making narrative: 77-year-old female with recent upper respiratory symptoms. Patient is hype rtensive but otherwise appropriate vitals here in the department. Patient had chest x-ray which shows possible atypical changes but on examination patient's lungs are clear. Patient has positive for COVID/negative for influenza and RSV. She did also have some urinary symptoms has positive leuks, no nitrates, ketones with few bacteria 1-5 RBCs, 1-5 WBCs and 0-1 squamous epithelial. We will cover with oral antibiotic for UTI. Discussed with patient appears to have COVID. Can do Tylenol/ibuprofen for muscle aches, loratadine [id number] PRN. Discussed return precautions. Discharge Plan Departure Patient Disposition: Home Clinical Impression: COVID-19 virus infection, Acute UTI Activity Restrictions/Additional Instructions: You are positive for covid infection today. Your urine sample what appears to be a UTI or bladder infection. You may take Tylenol and/or ibuprofen as needed for fevers. You may take Zofran or ondansetron 1 tablet every 6 hours as needed for nausea or vomiting Please take oral antibiotic until completed. Prescription sent to [facility] in [place]. Please return for new or worsening symptoms persistent fevers, new chest pain or shortness of breath, lightheadedness or passing out, persistent vomiting, black or bloody stools, difficulty with urination or other new or concerning changes. Prescriptions: New amoxicillin-pot clavulanate 875-125 mg tablet 1 tab PO Q12H Qty: 14 0RF ondansetron 4 mg tablet,disintegrating 4 mg PO TID-QID PRN (Reason: nausea and vomiting) Qty: 10 0RF No Action ascorbic acid (vitamin C) 1,000 mg tablet 1 g PO DAILY cholecalciferol (vitamin D3) 25 mcg (1,000 unit) capsule 25 mcg PO DAILY omega 6-nao-zso-fish oil 500-1,000 mg capsule 1 cap PO TID vitamin B complex [B Complex-Vitamin B12] Tablet 1 tab PO DAILY PRN Estriol 0.1% 1 g vaginal BEDTIME celecoxib 200 mg capsule See Rx Instructions .ROUTE .COMPLEX Qty: 30 1RF Dose Instruction: TAKE ONE CAPSULE BY MOUTH TWICE DAILY NEEDED FOR PAIN Rx Instructions: TAKE ONE CAPSULE BY MOUTH TWICE DAILY NEEDED FOR PAIN amitriptyline 10 mg tablet See Rx Instructions .ROUTE .COMPLEX Qty: 30 3RF Dose Instruction: TAKE ONE TABLET BY MOUTH NIGHTLY AT BEDTIME Rx Instructions: TAKE ONE TABLET BY MOUTH NIGHTLY AT BEDTIME atorvastatin 20 mg tablet 20 mg PO DAILY Qty: 90 3RF Referrals: Dennys Israel MD [Primary Care Provider] - Stand Alone Forms: Patient Portal/API
[2023-10-21 10:58] LABS: Influenza A - CEPHEID Flu A NEGATIVE (NEGATIVE); Influenza B - CEPHEID Flu B NEGATIVE (NEGATIVE); Respiratory Syncytial Virus Negative (Negative)
[2023-10-21 11:06] LABS: Bacteria Urine Few (2-10); Culture Indicated Urine Specimen Cultured; RBC Urine 1-5/HPF (0-5/HPF); Squamous Epithelial Cell Urine 0-1 /HPF (0-5/HPF); WBC Urine 1-5/HPF (0-5/HPF)
[2023-10-21 11:19] LABS: COVID19 -Nasal RAPID POSITIVE (Negative)
== END 2023-10-21 11:45 | disposition home or self-care (01) ==
PROVIDERS: Emergency Provider Emergency Medicine; PCP Family Medicine
DX: U07.1 COVID-19 (principal); N39.0 Urinary tract infection, site not specified; I10 Essential (primary) hypertension
CPT/HCPCS: 0241U; 71046; 81003; 81015; 87086; 87635; 99283; C9803

== ENCOUNTER → 2023-11-12 07:56 | Outpatient (CLI) | payer MEDICARE, SELFPAY ==
[2023-11-12 09:14] LABS: Hemoglobin 12.6 g/dL (12.0-16.0); Mean Corpuscular HGB Conc 34.1 % (30-36); Mean Corpuscular Hemoglobin 34.1 PG (26-34); Mean Corpuscular Volume 100.1 fL (80-100); Platelet Count 123 X10^3/uL (150-400); Red Cell Distribution Width 13.6 % (11.6-14.8); White Blood Cell Count 4.3 X10^3/uL (4.5-11.0)
[2023-11-12 09:15] LABS: Add Manual Diff / Slide Review YES
[2023-11-12 09:25] LABS: Hemoglobin A1C% w Est Avg Glu 5.6 % (4.0-6.0)
[2023-11-12 09:29] LABS: Alanine Aminotransferase 15 IU/L (<35); Albumin Globulin Ratio 1.5 (1.0-2.8); Alkaline Phosphatase 59 U/L (38-126); Aspartate Aminotransferase 30 IU/L (14-36); Bilirubin Total 0.7 mg/dL (0.2-1.3); Blood Urea Nitrogen 18 mg/dL (7-17); Calcium 9.3 mg/dL (8.4-10.2); Carbon Dioxide 29 mmol/L (22-32); Chloride 102 mmol/L (98-107); Cholesterol 145 mg/dL (140-199); Estimated Glomerular Filt Rate > 60 mL/min (>60); Globulin 2.7 g/dL (1.7-4.1); Glucose 90 mg/dL (80-110); HDL Cholesterol 56 mg/dL (40-60); HEMOLYSIS < 15 (0-50); LDL Cholesterol Calculated 68 mg/dL (<100); Potassium 4.2 mmol/L (3.4-5.1); Sodium 138 mmol/L (137-145); Total Protein 6.7 g/dL (6.3-8.2); Triglycerides 103 mg/dL (35-150)
[2023-11-12 09:39] LABS: Neutrophils Absolute Manual 1677 /uL (3000-5900); RBC Morphology Normal Morphology; Total Cells Counted 100
[2023-11-12 09:57] LABS: TSH w/ Reflex to FT4 1.81 uIU/mL (0.47-4.68)
== END ==
LOC: LAB 07:57
PROVIDERS: PCP Family Medicine; Referring Provider Family Medicine; Visit Provider Family Medicine
DX: E78.5 Hyperlipidemia, unspecified (principal); I10 Essential (primary) hypertension
CPT/HCPCS: 36415; 80053; 80061; 83036; 84443; 85007; 85025

== ENCOUNTER → 2023-12-14 13:23 | Outpatient (CLI) | payer MEDICARE, SELFPAY ==
[2023-12-14 14:21] LABS: Estimated Glomerular Filt Rate > 60 mL/min (>60)
== END ==
PROVIDERS: PCP Family Medicine; Referring Provider Radiology Diagnostic Radiology; Visit Provider Radiology Diagnostic Radiology
DX: R10.9 Unspecified abdominal pain (principal)
CPT/HCPCS: 36415; 82565

== ENCOUNTER → 2023-12-17 08:56 | Outpatient (CLI) | payer MEDICARE, SELFPAY ==
--- NOTE | 2023-12-17 08:57 | DI.CT.S_ITS ---
PROCEDURE: CT ABDOMEN PANCREATIC PROTOCOL INDICATIONS: Severe upper abdominal pain; possible pancreatic cyst TECHNIQUE: Both before and after the administration of intravenous contrast, 3 mm thick pancreatic-phase images acquired from the diaphragm to the iliac crests. 3 mm thick coronal and sagittal reformats were performed. For radiation dose reduction, the following was used: automated exposure control, adjustment of mA and/or kV according to patient size. COMPARISON: [facility], [place], ABDOMEN COMPLETE, 06/05/2016, 7:17. FINDINGS: Image quality: Diagnostic. Lower chest: Cardiomegaly. ABDOMEN: Pancreas: No solid mass. No ductal dilation. 1.2 centimeter T2 hyperintense cystic lesion in the pancreatic body (series 9, image 41), stable in size compared with 2016. There is connection to the pancreatic duct. No nodularity. Liver: No solid mass. Subcentimeter hypoattenuating lesion in segment 4, too small to characterize by CT. Additional cyst in segment 4B. Gallbladder: No radiopaque gallstones or wall thickening. Biliary ducts: No biliary dilation. Adrenal Glands: No nodules. Spleen: Size is within normal limits. Kidneys and Ureters: No hydronephrosis. No solid mass. No complex renal cystic lesion which requires follow up. Stomach and Bowel: Normal colonic caliber, without significant wall thickening. Duodenal diverticulum extending into the pancreatic head, without biliary obstruction. Peritoneum: No abnormal intraperitoneal fluid. No free air. Ventral Wall: No hernia. Abdominal Nodes: No retroperitoneal or mesenteric adenopathy by size criteria. Vessels: Aorta and inferior vena cava are normal in size. Bones: No aggressive osseous abnormality. Convex left scoliosis centered at L3. 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 Recommend 2 year follow-up with pancreatic MRI or CT , to conclude imaging surveillance. Dictated by: Abel Miles M.D. on 12/17/2023 at 10:22 Approved by: Abel Miles M.D. on 12/17/2023 at 10:28
== END ==
LOC: CT 08:57
PROVIDERS: PCP Family Medicine; Referring Provider Physician Assistant; Visit Provider Physician Assistant
DX: K86.2 Cyst of pancreas (principal); R10.9 Unspecified abdominal pain
CPT/HCPCS: 74170; Q9967

== ENCOUNTER → 2024-02-07 11:30 | Outpatient (CLI) | payer MEDICARE, SELFPAY ==
--- NOTE | 2024-02-07 11:32 | DI.RAD.S_ITS ---
PROCEDURE: XR LUMBAR SPINE 2-3V INDICATIONS: lbp TECHNIQUE: 3 views of the lumbar spine were acquired. COMPARISON: [facility], CR, XR LUMBAR SPINE MIN 4V, 09/09/2020, 8:27. [facility], CR, XR LUMBAR SPINE 2-3V, 02/19/2019, 14:38. FINDINGS: Bones: 5 [id number] vertebrae are present. Levo scoliotic curvature of the lumbar spine is redemonstrated. There is multilevel facet arthropathy, worse at L4-5 and L5-S1. Multilevel disc height loss with degenerative endplate changes and spurring is present. This is most pronounced and severe at L1-L2 and L4-L5. No vertebral body compression fractures. No suspicious bony lesions. Soft tissues: Overlying bowel gas pattern is normal. No suspicious soft tissue calcifications. IMPRESSION: Severe degenerative changes of the lumbar spine with levo scoliotic curvature are redemonstrated. Dictated by: Nitin Marquez M.D. on 02/07/2024 at 12:49 Approved by: Nitin Marquez M.D. on 02/07/2024 at 12:50
--- NOTE | 2024-02-07 11:32 | DI.RAD.S_ITS ---
PROCEDURE: XR PELVIS 1-2V INDICATIONS: lbp TECHNIQUE: 1 view(s) of the pelvis acquired. COMPARISON: None. FINDINGS: Bones: No fractures or dislocations. Mild degenerative changes of the hips with joint space narrowing and marginal spurring. No suspicious bony lesions. Soft tissues: Visualized bowel gas pattern is normal. No suspicious soft tissue calcifications. IMPRESSION: No acute osseous abnormalities. Mild degenerative changes of the hips. Dictated by: Nitin Marquez M.D. on 02/07/2024 at 12:51 Approved by: Nitin Marquez M.D. on 02/07/2024 at 12:51
== END ==
PROVIDERS: PCP Family Medicine; Referring Provider Family Medicine; Visit Provider Family Medicine
DX: M47.816 Spondylosis without myelopathy or radiculopathy, lumbar region (principal); M47.817 Spondylosis without myelopathy or radiculopathy, lumbosacral region; M54.50 Low back pain, unspecified; M41.9 Scoliosis, unspecified
CPT/HCPCS: 72100; 72170

== ENCOUNTER → 2024-03-11 09:45 | Outpatient (CLI) | payer MEDICARE, SELFPAY | LOC: LAB 09:47 | PROVIDERS: PCP Family Medicine; Referring Provider Urology; Visit Provider Urology | DX: N32.81 Overactive bladder (principal) | CPT/HCPCS: 87077; 87086 ==

== ENCOUNTER → 2024-03-17 07:18 | Outpatient (CLI) | payer MEDICARE, SELFPAY ==
--- NOTE | 2024-03-17 09:06 | DI.MRI.S_ITS ---
PROCEDURE: MR LUMBAR SPINE WO CON INDICATIONS: Lumbar radiculopathy TECHNIQUE: Noncontrast sagittal T1 spin echo and T2 fast echo, sagittal STIR, and T2 fast spin echo through the lumbar spine. In cases with scoliosis, additional coronal T2 fast spin echo may be performed. COMPARISON: [facility], MR, MR LUMBAR SPINE WO CON, 03/08/2019, 14:48. FINDINGS: Image quality: Excellent. Alignment and Curvature: Convex right thoracolumbar scoliosis. Grade 1 anterior spondylolisthesis L4-5. Bone Marrow: Modic type 1 edematous degenerative endplate changes noted L1-2 and L4-5 Spinal Cord: Conus medullaris terminates at the L1 level. Visualized cord demonstrates normal signal and size. Paraspinous Soft Tissues: No paravertebral masses. T12-L1: Normal appearance. L1-L2: Disc space narrowing with posterior disc bulge results in mild central stenosis. Moderate left and no right foraminal stenosis. L2-L3: Disc space narrowing posterior disc bulge with mild central stenosis. Moderate left and right foraminal stenosis L3-L4: Disc space narrowing and hypertrophic facet joint with arthropathy results in mild central stenosis. Severe right and moderate left foraminal stenosis L4-L5: Disc space narrowing and posterior disc bulge with hypertrophic facet joints [place] central stenosis. Moderate left and severe right foraminal stenosis. L5-S1: Disc space is preserved. Hypertrophic facet joints. No central stenosis. No right foraminal stenosis. Moderate left foraminal stenosis. IMPRESSION: Degenerative disc disease, arthropathy and thoracolumbar dextroscoliosis associated with varying degrees of central and foraminal stenosis including severe foraminal stenosis at L3-4 and L4-5 Approved by: Antoine Jesus M.D. on 03/17/2024 at 15:37
== END ==
PROVIDERS: PCP Family Medicine; Referring Provider Anesthesiology; Visit Provider Anesthesiology
DX: M51.16 Intervertebral disc disorders with radiculopathy, lumbar region (principal); M47.26 Other spondylosis with radiculopathy, lumbar region; M48.061 Spinal stenosis, lumbar region without neurogenic claudication; M47.27 Other spondylosis with radiculopathy, lumbosacral region; M48.07 Spinal stenosis, lumbosacral region; M41.9 Scoliosis, unspecified
CPT/HCPCS: 72148

== ENCOUNTER → 2024-04-04 09:51 | Outpatient (CLI) | payer MEDICARE, SELFPAY ==
[2024-04-04 11:02] LABS: Amylase 86 U/L (30-110); Lipase 180 U/L (23-300)
== END ==
PROVIDERS: PCP Family Medicine; Referring Provider Physician Assistant; Visit Provider Physician Assistant
DX: K86.2 Cyst of pancreas (principal); R10.10 Upper abdominal pain, unspecified
CPT/HCPCS: 36415; 82150; 83690

== ENCOUNTER → 2024-05-22 08:00 | Outpatient (CLI) | payer MEDICARE, SELFPAY ==
--- NOTE | 2024-05-22 08:01 | DI.MG.S_ITS ---
BILATERAL DIGITAL SCREENING MAMMOGRAM 3D/2D WITH CAD: 05/22/2024 CLINICAL: Routine screening. Family history of breast cancer. Comparison is made to exams dated: 05/16/2023 mammogram, 12/19/2021 mammogram, and 12/13/2020 mammogram - [facility]. Both breasts are heterogeneously dense, which may obscure small masses (category c / 51-75% glandular tissue). Current study was also evaluated with a Computer Aided Detection (CAD) system. There is a biopsy clip in the right breast. No significant masses, calcifications, or other findings are seen in either breast. There has been no significant interval change. IMPRESSION: BENIGN There is no mammographic evidence of malignancy. A 1 year screening mammogram is recommended. Based on the Tyrer Cuzick model (a risk assessment model) the patient's lifetime risk is 4.4% and her 10 year risk is 0.0%. According to the ACR, ACS, and NCCN guidelines, an annual breast MRI exam along with mammogram is recommended if the patient's lifetime risk is 20% or greater. This exam was interpreted at Station ID: [id number]. NOTE: For mammograms, a report in lay terms will be sent to the patient. Approximately 15% of breast malignancies will not be visualized mammographically. In the management of a palpable breast mass, a negative mammogram must not discourage biopsy of a clinically suspicious lesion. Electronically Signed By: Bernarda Cook M.D., Ph.D. ashok/dwayne:05/23/2024 08:33:12 letter sent: Normal Exam ACR BI-RADS Category 2: Benign Finding(s) 3342F
== END ==
PROVIDERS: PCP Family Medicine; Referring Provider Family Medicine; Visit Provider Family Medicine
DX: Z12.31 Encounter for screening mammogram for malignant neoplasm of breast (principal); Z80.3 Family history of malignant neoplasm of breast; R92.333 Mammographic heterogeneous density, bilateral breasts
CPT/HCPCS: 77063; 77067

== ENCOUNTER 2024-05-28 08:03 | Outpatient (CLI) | payer MEDICARE, SELFPAY ==
[2024-05-28 08:25] VITALS: BP 169/71; PULSE 55; RESP 16; TEMP 36.3; O2SAT 98
--- NOTE | 2024-05-28 08:30 | DI.RAD.S_ITS ---
PROCEDURE: PAIN L INTERLAMINAR/CAUDAL INJ INDICATIONS: SPONDYLOSIS COMPARISON: None. FINDINGS: Fluoroscopic spot filming was performed to verify placement of spinal needles overlying L4-5 level(s), as labeled on the films. Appropriate location(s) of the needle tip(s) was confirmed by injection of iodinated contrast. IMPRESSION: Contrast and needle placement overlying L4-5. Dictated by: Cierra Loera M.D. on 05/28/2024 at 14:44 Approved by: Cierra Loera M.D. on 05/28/2024 at 14:45
[2024-05-28 08:41] VITALS: BP 160/72; PULSE 55; RESP 16; O2SAT 100
[2024-05-28 08:45] VITALS: BP 150/68; PULSE 54; RESP 15; O2SAT 100
[2024-05-28] MEDS: iopamidoL 15 ML VIAL 3 ML INJ (08:47)
[2024-05-28] MEDS: DEXAMETHASONE 10 MG/ML VIAL INJ (08:47)
[2024-05-28] MEDS: LIDOCAINE 1% (PF) 5 ML INJ (08:48)
[2024-05-28 08:50] VITALS: BP 135/65; PULSE 52; RESP 13; O2SAT 99
[2024-05-28 08:54] VITALS: BP 144/68; PULSE 52; RESP 15; O2SAT 100
[2024-05-28 08:58] VITALS: BP 147/67; PULSE 54; RESP 18; O2SAT 99
--- NOTE | 2024-05-28 12:20 | P.PCN_ITS ---
Date/Time/Diagnoses Date of procedure: 05/28/24 Time of procedure: 08:30 Procedure Notes Physician: Joon Bearden Total Fluoroscopy time (seconds): 13 Total sedation minutes: 0 Procedure in detail & Post-procedure care: L4-5 Interlaminar Epidural Steroid Injection Indications: Jany is presenting for treatment of lumbar radiculopathy with low back and leg pain. Preoperative diagnosis: Lumbar radiculopathy Postoperative diagnosis: Same Focused Examination: Ax3 Mood and affect are normal Vital Signs: VSS Consent: Following review of allergies and potential side effects/complications, including, but not necessarily limited to, infection, allergic reaction, local tissue breakdown, stroke, temporary or permanent nerve injury, paralysis, and possible , the patient indicated that they understood and agreed to proceed.? An informed consent document was signed by the patient, witnessed by a nurse and placed in the patient's chart.? Additionally, other treatment options including medications and physical therapy were reviewed with the patient. All questions were answered. Site was then marked. Anesthesia: Local Position: Prone Monitoring: NIBP, Pulse oximetry, 3 lead EKG Needle used: 18 G 3.5? Tuohy Contrast: Isovue 300M Injectate: Dexamethasone 10 mg with 1% lidocaine 2 mL Technique: The skin was prepped with chloraprep and then draped in a sterile fashion. Time out was performed as per protocol. Oxygen applied via NC. Skin and subcutaneous structures of the needle entry site was then infiltrated with 3 mL of lidocaine 1%. Under AP, lateral and contralateral oblique fluoroscopic control, the Tuohy needle was guided into the L4-5 epidural space. The space was accessed with loss of resistance technique. Isovue 300M was then injected and the spread was consistent with the epidural space. There was no evidence for intravascular or intrathecal uptake. After negative aspiration, the above- mentioned injectate was then slowly administered and the needle withdrawn. The patient expressed no unusual discomfort or paresthesias during the injection. Band-Aids applied to injection sites. EBL: less than 1 ml Complications: None Post Procedure: Patient was taken to the recovery and monitored. The patient was provided a Pain Log to continue to record the patient's response to the target- specific procedure prior to the patient's follow-up visit with the referring physician. Patient was stable upon discharge. Detailed post procedure instructions were provided. Patient was asked to call in the event of worsening pain, fever, weakness, numbness or bladder or bowel incontinence.
== END 2024-05-28 08:35 | disposition home or self-care (01) ==
LOC: RAD 08:04
PROVIDERS: PCP Family Medicine; Referring Provider Anesthesiology; Visit Provider Anesthesiology
DX: M54.16 Radiculopathy, lumbar region (principal)
CPT/HCPCS: 62323; J1100

== ENCOUNTER 2024-06-29 15:00 | Observation (INO) | payer MEDICARE, SELFPAY ==
[2024-06-29] VITALS (27 sets, daily range): BP systolic 111–215; BP diastolic 55–128; PULSE 59–132; RESP 18–52; TEMP 36.5–38.9; O2SAT 91–98; BMI 22.8
--- NOTE | 2024-06-29 15:16 | DI.RAD.S_ITS ---
PROCEDURE: XR CHEST 1V INDICATIONS: suspected sepsis TECHNIQUE: One view of the chest was acquired. COMPARISON: [facility], CR, XR CHEST 2V, 10/21/2023, 10:13. FINDINGS: Surgical changes and devices: None. Lungs and pleura: Lungs are clear. No pleural effusions or pneumothorax. Mediastinum: Mediastinal contours appear normal. Heart size is normal. Aortic arch is calcified, indicating atherosclerosis. Bones and chest wall: No suspicious bony lesions. Overlying soft tissues appear unremarkable. IMPRESSION: No acute cardiopulmonary process. Dictated by: Betty Ng M.D. on 06/29/2024 at 15:40 Approved by: Betty Ng M.D. on 06/29/2024 at 15:41
--- NOTE | 2024-06-29 15:31 | EKG_ITS ---
[facility] [address] [place] [address] Test Date: 2024-06-29 Pat Name: Jany Tierney Department: [facility] Room: Gender: Female [employer]er: : 1945 Requested By: Order Number: [id number] Reading MD: Sriram Juarez MD Measurements Intervals [place] Rate: 103 P: 49 AL: 168 QRS: -59 QRSD: 84 T: 9 QT: 322 QTc: 421 Interpretive Statements Sinus tachycardia Left anterior fascicular block Nonspecific ST abnormality NO PRIOR TRACING Electronically Signed On 06-30-2024 8:59:17 PDT by Sriram Juarez MD
[2024-06-29 15:42] LABS: INR 1.1 (0.9-1.3); Prothrombin Time 12.1 SECONDS (9.4-12.5)
[2024-06-29 15:45] LABS: Creatine Kinase 114 U/L (30-135); Hematocrit 38.2 % (36-46); Hemoglobin 13.3 g/dL (12.0-16.0); Mean Corpuscular HGB Conc 34.9 % (30-36); Mean Corpuscular Hemoglobin 35.3 PG (26-34); Mean Corpuscular Volume 101.1 fL (80-100); Platelet Count 50 X10^3/uL (150-400); Red Blood Cell Count 3.78 X10^6/uL (4.0-5.2); Red Cell Distribution Width 13.4 % (11.6-14.8); White Blood Cell Count 3.3 X10^3/uL (4.5-11.0)
--- NOTE | 2024-06-29 15:45 | ED.FEVER ---
HPI - Fever General Chief Complaint: Fever Stated Complaint: difficulty swallowing, fever, weakness Time Seen by Provider: 06/29/24 15:34 Source: patient and family Mode of arrival: Wheelchair Limitations: no limitations History of Present Illness HPI Narrative: 78-year-old female with history of hypertension, dyslipidemia, recurrent bronchitis presents with complaint of fevers, tightness in her throat and chest, shortness of breath, sore throat, hoarseness for the past 4 days. [place] week and a half ago, flew back leaving last night at arriving this afternoon. Patient and family then promptly came to the department. Patient has felt increasingly worse. States no fevers that she appreciated until today in the emergency department. Describes tightness in her chest as well as her throat. Little bit of hoarseness but no muffled voice. She has had some difficulty with swallowing tablets but has been handling secretions without issue. She has had a cough which she states has been nonproductive. She denies chest pain and states more tight in her chest but has felt short of breath. Denies any nausea or vomiting. Did have some loose stools. No constipation, no swelling of extremities. Patient does not have any history of blood clots states she takes medication for hypertension dyslipidemia has had bronchitis in the past and has had albuterol in the past. No known drug allergies. No tobacco, alcohol or recreational drugs. Dr. Israel is her primary care physician. Related Data Home Medications Medication Instructions Recorded Confirmed cholecalciferol (vitamin D3) 25 25 mcg PO DAILY 05/04/22 06/29/24 mcg (1,000 unit) capsule omega 1-lpq-njm-fish oil 500 mg 1 cap PO TID 05/04/22 06/29/24 (200mg-300mg)-1,000 mg capsule vitamin B complex (B 1 tab PO DAILY 05/04/22 06/29/24 Complex-Vitamin B12 tablet) celecoxib 200 mg capsule 200 mg PO BID PRN Pain (Scale 06/29/24 06/29/24 Score 7-10) Previous Rx's Medication Instructions Recorded lisinopril 10 mg tablet 10 mg PO DAILY #90 tabs 11/05/23 amitriptyline 10 mg tablet 10 mg PO ONCE PM #30 tabs 01/14/24 inhalational spacing device #1 ea 04/02/24 (Flexichamber spacer) albuterol sulfate 90 mcg/actuation 2 puff inhalation BEDTIME PRN 04/03/24 aerosol inhaler shortness of breath or wheezing #6.7 grams beclomethasone dipropionate 40 1 inh inhalation BEDTIME #10.6 04/08/24 mcg/actuation HFA breath activated grams aerosol (Qvar RediHaler) Allergies Allergy/AdvReac Type Severity Reaction Status Date / Time No Known Drug Allergies Allergy Verified 06/29/24 15:21 Review of Systems Review of Systems ROS Unobtainable: All systems reviewed & are unremarkable except as noted in HPI and below Patient History Medical History Lumbar spondylosis SI (sacroiliac) joint dysfunction Lumbar radiculopathy COVID-19 virus infection Impacted cerumen, left ear Kyphosis Lower urinary tract symptoms (LUTS) Postmenopausal atrophic vaginitis Obstructive sleep apnea syndrome Snoring Excessive daytime sleepiness Facet arthropathy, lumbosacral Oral candidiasis BCC (basal cell carcinoma of skin) Shoulder pain Lumbar spine pain Foot pain (1998) Cervical spine disease Partial blindness (1996) Polio (1951) Chronic back pain (2011) Scoliosis Urinary incontinence Asthma Alcohol abuse Surgical History Anesthesia Status post hammer toe correction (~1999) History of cataract removal with insertion of prosthetic lens Status post bunionectomy (~1999) Family History Brother Overdose Father Heart disease Hypertension CAD (coronary artery disease) Myocardial infarction Grandfather Parkinsons Grandmother Dementia Mother Dementia Arthritis Bronchitis Ovarian cancer Grandfather No problems noted. Grandmother No problems noted. Social History marital status: Smoking Status: Former smoker alcohol intake: never substance use type: amphetamines Smoking Status: Former smoker alcohol intake frequency: 0-2 drinks per day Substance Use Type: does not use Exam Narrative Exam Narrative: GEN: well nourished, female, alert and oriented x 3, patient appears to be in moderate distress. HEENT: Atraumatic, pupils are equal round reactive to light, extraocular movements are intact, nares are clear, there is no conjunctival pallor. Throat is clear without any exudates, erythema, tonsillar enlargement or uvular deviation, patient is hoarse. No muffled voice. Patient is handling secretions without issue. She can leaned back. Questionable swelling of on examination but has been and patient state they do not appreciate any external swelling. HEART: Tachycardic but regular rate and rhythm without murmur, clicks, rubs. No carotid bruits, pulses are equal in upper and lower extremities. No JVD. Patient has compression stockings on but no clear edema bilateral lower extremities. LUNGS:Lungs patient has some wheezes at the bases, positive for tachypnea, no rales, crackles, chest moves symmetrically, valgus cm use. No intercostal or subcostal retractions. ABD:bowel sounds normal, soft, non-tender, no guarding, rebound, rigidity, no masses noted, no hepatosplenomegaly :No CVA tenderness MSCL: Non-tender, no muscle atrophy, muscles strength 5/5 upper and lower extremities, full range of motion, normal gait NEURO:CN 2-12 intact, sensation normal. SKIN: No rash, erythema or other skin changes Initial Vital Signs Initial Vital Signs: Vital Signs Temperature 102.1 F H 06/29/24 15:05 Pulse Rate 115 H 06/29/24 15:05 Respiratory Rate 22 06/29/24 15:05 Blood Pressure 175/80 H 06/29/24 15:05 Pulse Oximetry 91 06/29/24 15:05 Oxygen Delivery Method Room Air 06/29/24 15:05 Course Orders Ordered: ED Orders 06/29/24 15:16 XR chest 1V Stat EKG-12 Lead Stat RT Consult Eval and Treat NOW 06/29/24 15:24 BNP [NT-proBNP (BNP-Adult 18+)] Stat Blood Culture Stat Complete Blood Count AUTO DIFF Stat Comprehensive Metabolic Panel Stat Lactate (Lactic Acid) Stat Lipase Stat PTT Partial Thromboplastin Shamir Stat Procalcitonin Stat Prothrombin Time INR Stat Troponin & CK Cardiac Panel Stat 06/29/24 15:28 Respiratory Panel (Film Array) Stat Strep Grp A by PCR Rapid Stat 06/29/24 15:41 D Dimer Stat 06/29/24 16:08 CT angio chest PE protocol Stat CT soft tissue neck w con Stat 06/29/24 16:49 Throat Culture Stat 06/29/24 17:30 Trop I [Troponin I] Stat Epinephrine (Racepinephrine 0.5 Ml Neb) 0.5 ml INH RTQ4HR PRN PRN Reason: Shortness Of Breath Last Admin: 06/29/24 16:02 Dose: 0.5 ml Documented By: NIMCO Ondansetron HCl (Ondansetron 4 Mg Odt) 4 mg SL NOW PRN PRN Reason: Nausea And Vomiting Discontinued Medications Acetaminophen (Acetaminophen 325 Mg Tablet) 975 mg PO NOW ONE Stop: 06/29/24 15:18 Last Admin: 06/29/24 15:34 Dose: Not Given Documented By: FUNMILAYO Albuterol/Ipratropium (Albuterol/Ipratropium 3 Ml Ampul) 3 ml INH NOW ONE Stop: 06/29/24 15:27 Last Admin: 06/29/24 15:47 Dose: 3 ml Documented By: SAT Sodium Chloride (Normal Saline 0.9%) 1,000 mls @ 1,000 mls/hr IV BOLUS ONE Stop: 06/29/24 16:15 Last Infusion: 06/29/24 17:20 Dose: Infused Documented By: Admin: 06/29/24 16:00 Dose: 1,000 mls/hr Documented By: SB Acetaminophen (Ofirmev) 1,000 mg in 100 mls @ 400 mls/hr IV NOW ONE Stop: 06/29/24 15:49 Last Infusion: 06/29/24 16:30 Dose: Infused Documented By: Admin: 06/29/24 16:01 Dose: 400 mls/hr Documented By: SB Dexamethasone 20 mg/ Sodium (Chloride) 55 mls @ 220 mls/hr IV NOW ONE Stop: 06/29/24 15:42 Last Admin: 06/29/24 15:58 Dose: Not Given Documented By: SB Piperacillin Sod/Tazobactam (Sod 4.5 gm/ Sodium Chloride) 100 mls @ 200 mls/hr IV NOW ONE Stop: 06/29/24 15:43 Last Infusion: 06/29/24 16:45 Dose: Infused Documented By: Admin: 06/29/24 16:00 Dose: 200 mls/hr Documented By: SB Ketorolac Tromethamine (Ketorolac 30 Mg/Ml Vial) 15 mg IV NOW ONE Stop: 06/29/24 16:18 Last Admin: 06/29/24 17:13 Dose: 15 mg Documented By: SB Methylprednisolone (Methylprednisolone 125 Mg/2 Ml Vial) 125 mg IV NOW ONE Stop: 06/29/24 15:59 Last Admin: 06/29/24 15:59 Dose: 125 mg Documented By: NIMCO Ondansetron HCl (Ondansetron 4 Mg/2 Ml Inj) 4 mg IV NOW PRN PRN Reason: Nausea And Vomiting Last Admin: 06/29/24 15:59 Dose: 4 mg Documented By: NIMCO Vital Signs Vital signs: Vital Signs - 8 hr 06/29/24 15:05 06/29/24 15:47 06/29/24 16:01 Temperature 102.1 F H Pulse Rate 115 H 112 H 116 H Respiratory Rate 22 18 Blood Pressure 175/80 H Pulse Oximetry 91 95 96 Oxygen Delivery Method Room Air Nasal Cannula Nasal Cannula Oxygen Flow Rate 2 2 06/29/24 16:05 06/29/24 16:06 06/29/24 16:06 Temperature Pulse Rate 132 H 122 H Respiratory Rate Blood Pressure 192/128 H Pulse Oximetry 96 96 Oxygen Delivery Method Oxygen Flow Rate 06/29/24 16:10 06/29/24 16:13 06/29/24 16:13 Temperature Pulse Rate 125 H 109 H Respiratory Rate 20 26 H Blood Pressure 215/93 H Pulse Oximetry 95 96 Oxygen Delivery Method Nasal Cannula Oxygen Flow Rate 2 06/29/24 16:15 06/29/24 16:15 06/29/24 16:39 Temperature Pulse Rate 122 H 102 H Respiratory Rate 23 Blood Pressure 174/79 H Pulse Oximetry 97 98 Oxygen Delivery Method Nasal Cannula Oxygen Flow Rate 2 06/29/24 16:40 06/29/24 16:44 06/29/24 16:44 Temperature Pulse Rate 100 H 101 H Respiratory Rate 19 24 Blood Pressure 133/63 Pulse Oximetry 97 97 Oxygen Delivery Method Oxygen Flow Rate 06/29/24 16:45 06/29/24 16:45 06/29/24 16:50 Temperature Pulse Rate 96 H 97 H Respiratory Rate 30 H 27 H Blood Pressure 127/56 L Pulse Oximetry 96 96 Oxygen Delivery Method Nasal Cannula Oxygen Flow Rate 2 06/29/24 16:55 06/29/24 17:00 Temperature Pulse Rate 99 H Respiratory Rate 35 H Blood Pressure 120/56 L Pulse Oximetry 96 Oxygen Delivery Method Nasal Cannula Oxygen Flow Rate 2 MDM - Fever Lab Data 06/29/24 15:24 06/29/24 15:24 Labs: Lab Results 06/29/24 06/29/24 06/29/24 Range/Units 15:24 15:28 17:28 WBC 3.3 L (4.5-11.0) X10^3/uL RBC 3.78 L (4.0-5.2) X10^6/uL Hgb 13.3 (12.0-16.0) g/dL Hct 38.2 (36-46) % MCV 101.1 H (80-100) fL MCH 35.3 H (26-34) PG MCHC 34.9 (30-36) % RDW 13.4 (11.6-14.8) % Plt Count 50 L (150-400) X10^3/uL Neut % (Auto) Not Reportable Lymph % (Auto) Not Reportable Ceiba % (Auto) Not Reportable Eos % (Auto) Not Reportable Baso % (Auto) Not Reportable Lymph # (Auto) Not Reportable Ceiba # (Auto) Not Reportable Baso # (Auto) Not Reportable Total Counted 100 Seg Neutrophils % 45.0 (38-70) % Band Neutrophils % 10.0 H (3-7) % Lymphocytes % (Manual) 12.0 L (25-45) % Monocytes % (Manual) 32.0 H (2-11) % Eosinophils % (Manual) 1.0 L (2-4) % Neutrophils # (Manual) 1815 L (8719-0976) /uL RBC Morphology Normal morphology PT 12.1 (9.4-12.5) SECONDS INR 1.1 (0.9-1.3) APTT 32 (25.1-36.5) SECONDS D-Dimer 2338 H (<500) ng/ml Sodium 131 L (137-145) mmol/L Potassium 3.9 (3.4-5.1) mmol/L Chloride 99 (98-107) mmol/L Carbon Dioxide 22 (22-32) mmol/L BUN 19 H (7-17) mg/dL Creatinine 0.73 (0.52-1.04) mg/dL Estimated GFR > 60 (>60) mL/min BUN/Creatinine Ratio 26.0 H (6-22) Glucose 107 (80-110) mg/dL Lactate 0.9 (0.7-2.1) mmol/L Calcium 8.4 (8.4-10.2) mg/dL Total Bilirubin 0.6 (0.2-1.3) mg/dL AST 45 H (14-36) IU/L ALT 22 (<35) IU/L Alkaline Phosphatase 57 (38-126) U/L Total Creatine Kinase 114 (30-135) U/L Troponin I 0.076 H 0.082 H (0.01-0.034) ng/mL NT-Pro-B Natriuret Pep 1400 H (<450) pg/mL Total Protein 7.2 (6.3-8.2) g/dL Albumin 4.2 (3.5-5.0) g/dL Globulin 3.0 (1.7-4.1) g/dL Albumin/Globulin Ratio 1.4 (1.0-2.8) Lipase 101 (23-300) U/L Procalcitonin 0.101 (<0.5) ng/mL Chlamy pneumoniae PCR Not detected (Not Detect) Adenovirus (PCR) Not detected (Not Detect) B.parapertussis DNA PCR Not detected (Not Detecte) Coronavirus OC43 (PCR) Not detected (Not Detect) Coronavirus HKU1 (PCR) Not detected (Not Detect) Coronavirus 229E (PCR) Not detected (Not Detect) SARS-CoV-2 (PCR) Not detected (Not Detecte) Coronavirus NL63 (PCR) Not detected (Not Detect) Human Metapneumovir PCR Not detected (Not Detect) Influ A (H1N1 Seas) PCR Detected H (Not Detect) Influenza Type B (PCR) Not detected (Not Detect) M. pneumoniae (PCR) Not detected (Not Detect) Parainfluenza 1 (PCR) Not detected (Not Detect) Parainfluenza 2 (PCR) Not detected (Not Detect) Parainfluenza 3 (PCR) Not detected (Not Detect) Parainfluenza 4 (PCR) Not detected (Not Detect) RSV (PCR) Not detected (Not Detect) Entero/Rhino (PCR) Not detected (Not Detect) Group A Strep (PCR) Negative (Negative) Imaging Data CT scan - chest: Radiologist's Impression: Close Soft Tissue Neck CT (Signed) Nitin Marquez - 06/29/24 Chest CTA (Signed) Betty Ng - 06/29/24 Chest X-Ray (Signed) JaspreetadeBetty kirkpatrick - 06/29/24 Injection Lumbar, Sacrum (Signed) Cierra Loera - 05/28/24 Mammogram Screening (Signed) LandenbergLorrainee - 05/22/24 Lumbar Spine MRI (Signed) Antoine Jesus - 03/17/24 Pelvis X-Ray (Signed) Marquez,Nitin - 02/07/24 Lumbar Spine X-Ray (Signed) MarquezNitin - 02/07/[address] (Signed) Abel Miles - 12/17/23 Chest X-Ray (Signed) Dell,Chris - 10/21/23 Upper GI Series (Signed) Abel Miles - 06/21/23 Abdomen Ultrasound (Signed) JoeyBernarda - 06/21/23 Mammogram Screening (Signed) Nida Emerson - 05/16/23 Chest X-Ray (Signed) Davion Tucker - 08/31/22 Knee X-Ray (Signed) Antoine Jesus - 07/10/22 Shoulder X-Ray (Signed) Chris Sharpe - 05/16/22 Mammogram Diagnostic (Signed) Call,Viet - 05/16/22 Axilla US (Signed) Call,Viet - 05/16/22 Mammogram Screening (Signed) George Garcia - 12/19/21 DEXA Result 10/17/21 DEXA Result 10/17/21 Bone Densitometry (Signed) Starla Galvan - 10/17/21 DI Result 03/14/21 DI Result CC 03/14/21 DI Result 02/24/21 DI Result 02/24/21 DI Result CC 01/13/21 Mammogram Screening (Signed) Dennys Rogers - 12/13/20 DI Result CC 12/09/20 DI Result CC 12/09/20 DI Result CC 11/22/20 DI Result CC 11/22/20 SI Joint X-Ray (Signed) Dirk Morris - 09/28/20 Lumbar Spine X-Ray (Signed) Dirk Morris - 09/09/20 Facet Joint Injection X-Ray (Signed) Preston Thomason - 08/26/20 DI Result CC 07/14/20 DI Result CC 07/14/20 Hip X-Ray (Signed) Dirk Morris - 06/03/20 Mammogram Screening (Signed) Peyman Toussaint - 04/25/19 Lumbar Spine MRI (Signed) Preston Thomason - 03/08/19 Lumbar Spine X-Ray (Signed) Arturo,Dirk - 02/19/19 Mammogram Screening (Signed) Raman Michel - 04/19/18 [facility] [address] [address] [address] Scan Report Signed Patient: Jany Tierney MR#: [id number] : 1945 Acct:[id number] Age/Sex: 78 / F Date of Service: 06/29/24 Loc: Accession Number: [id number] Procedure: CT angio chest PE protocol Ordering Provider: Stephanie Farrell D.O. PROCEDURE: CT ANGIO CHEST PE PROTOCOL INDICATIONS: r/o retropharyngeal abscess, h throat/cp, flying, sob + trop TECHNIQUE: After the administration of intravenous contrast, 2 mm thick sections acquired from the pulmonary apices to the posterior costophrenic angles. 3-dimensional maximum intensity projection (MIP) coronal and sagittal reformats were then acquired through the thorax. For radiation dose reduction, the following was used: automated exposure control, adjustment of mA and/or kV according to patient size. COMPARISON: [facility], CT, CT ABDOMEN PANCREATIC PROTOCOL, 12/17/2023, 9:32. FINDINGS: Image quality: Diagnostic. Pulmonary arteries: Enhancement of the pulmonary arteries is adequate. No filling defect in the pulmonary vasculature to the level of the proximal subsegmental pulmonary arteries. Main pulmonary artery is normal in caliber. Lower Neck: No enlarged lymph nodes. Thyroid: No thyroid nodules which require sonographic follow up, per consensus guidelines. Axillae: No enlarged lymph nodes. Chest Wall: Unremarkable. Bones: No acute fractures. No aggressive appearing lytic or blastic osseous lesions. Axwu-xi-vwceqrln multilevel degenerative changes of the spine. Lungs and Pleura: No pneumothorax or pleural effusions. No suspicious pulmonary nodule or consolidation. Dependent atelectasis and bilateral lower lobe linear atelectasis. Patent central airways. Mild bilateral bronchial wall thickening. Mild biapical pleural parenchymal scarring. Heart: Heart size is normal. No pericardial effusion. Thoracic Vessels: Ascending thoracic aorta is at the upper limits of normal measuring 3.8 x 3.8 cm (). Mild calcification of the thoracic aorta. Origins of the great vessels are patent. Mediastinum and Yue: No enlarged lymph nodes. No mediastinal fluid collection. Esophagus: No wall thickening. Esophagus is mildly patulous. Small hiatal hernia. Upper Abdomen: Visualized upper abdomen solid organs and bowel loops appear normal. IMPRESSION: 1. No acute pulmonary embolism to the level of the proximal subsegmental pulmonary arteries. 2. No focal pulmonary consolidation. Mild bilateral bronchial wall thickening which may represent bronchiolitis of infectious or inflammatory etiology. 3. No mediastinal fluid collection or abscess. 4. Esophagus is mildly patulous. Dictated by: Betty Ng M.D. on 06/29/2024 at 16:23 Approved by: Betty Ng M.D. on 06/29/2024 at 16:31 CT soft tissue neck: Radiologist's Impression: Jany Tierney E??78??F??1945 ? Allergy/Adv: No Known Drug Allergies (More??) Close Soft Tissue Neck CT (Signed) Marquez,Nitin - 06/29/24 Chest CTA (Signed) Betty Ng - 06/29/24 Chest X-Ray (Signed) Betty Ng - 06/29/24 Injection Lumbar, Sacrum (Signed) Cierra Loera - 05/28/24 Mammogram Screening (Signed) Joey,Bernarda - 05/22/24 Lumbar Spine MRI (Signed) Jesus,Antoine - 03/17/24 Pelvis X-Ray (Signed) Marquez,Nitin - 02/07/24 Lumbar Spine X-Ray (Signed) Marquez,Nitin - 02/07/[address] (Signed) Abel Miles - 12/17/23 Chest X-Ray (Signed) Chris Sharpe - 10/21/23 Upper GI Series (Signed) Abel Miles - 06/21/23 Abdomen Ultrasound (Signed) Landenberg,Bernarda - 06/21/23 Mammogram Screening (Signed) Nida Emerson - 05/16/23 Chest X-Ray (Signed) Davion Tucker - 08/31/22 Knee X-Ray (Signed) Jesus,Antoine - 07/10/22 Shoulder X-Ray (Signed) Chris Sharpe - 05/16/22 Mammogram Diagnostic (Signed) Call,Viet - 05/16/22 Axilla US (Signed) Call,Viet - 05/16/22 Mammogram Screening (Signed) George Garcia - 12/19/21 DEXA Result 10/17/21 DEXA Result 10/17/21 Bone Densitometry (Signed) Starla Galvan - 10/17/21 DI Result 03/14/21 DI Result CC 03/14/21 DI Result 02/24/21 DI Result 02/24/21 DI Result CC 01/13/21 Mammogram Screening (Signed) Dennys Rogers - 12/13/20 DI Result CC 12/09/20 DI Result CC 12/09/20 DI Result CC 11/22/20 DI Result CC 11/22/20 SI Joint X-Ray (Signed) Dirk Morris - 09/28/20 Lumbar Spine X-Ray (Signed) Dirk Morris - 09/09/20 Facet Joint Injection X-Ray (Signed) Preston Thomason - 08/26/20 DI Result CC 07/14/20 DI Result CC 07/14/20 Hip X-Ray (Signed) Dirk Morris - 06/03/20 Mammogram Screening (Signed) Peyman Toussaint - 04/25/19 Lumbar Spine MRI (Signed) Preston Thomason - 03/08/19 Lumbar Spine X-Ray (Signed) Dirk Morris - 02/19/19 Mammogram Screening (Signed) Raman Michel - 04/19/18 [place] [address] CT Scan Report Signed Patient: Jany Tierney MR#: [id number] : 1945 Acct:[id number] Age/Sex: 78 / F Date of Service: 06/29/24 Loc: Accession Number: [id number] Procedure: CT soft tissue neck w con Ordering Provider: Stephanie Farrell D.O. PROCEDURE: CT SOFT TISSUE NECK W CON INDICATIONS: r/o retropharyngeal abscess, h throat/cp, flying, sob + trop TECHNIQUE: After the administration of intravenous contrast, 3.0 mm axial sections acquired from the sella to the aortic arch. Additional oblique axial 3.0 mm sections acquired through the pharynx. 3 mm thick coronal and sagittal reformats were generated. For radiation dose reduction, the following was used: automated exposure control. COMPARISON: None. FINDINGS: Image quality: Excellent. Lymph nodes: No enlarged lymph nodes seen throughout the neck. Vessels: Visualized vasculature appears patent. Atherosclerotic vascular calcifications. Neck spaces: The oropharynx, nasopharynx, and pharynx demonstrate no mucosal lesions. The vocal cords, false vocal cords, pyriform sinuses, epiglottis, vallecula, and tongue base all appear normal. Extramucosal spaces appear unremarkable. Glands: The parotid and submandibular glands appear normal. Thyroid gland demonstrates no significant abnormality.. Miscellaneous: Visualized brain and orbits appear normal. Lens replacements. Lung apices appear clear. Superficial soft tissues appear normal. Bones: No suspicious bony lesions. Visualized sinuses and mastoids appear unremarkable. Multilevel degenerative changes of the spine. IMPRESSION: No retropharyngeal abscess. No acute findings within the neck. Dictated by: Nitin Marquez M.D. on 06/29/2024 at 17:08 Approved by: Nitin Marquez M.D. on 06/29/2024 at 17:11 ECG Data Attestation: I personally reviewed and interpreted this ECG as follows: Prior ECG tracings: not available for review Interpretation: Sinus tach rate of 103 DE 168 QRS 84 QTC of 421, no acute ST elevation or depression. No priors for comparison. MDM Narrative Medical decision making narrative: 78-year-old female with can not fever sore throat sensation of swelling in her throat but also tightness in her chest, shortness of breath. Patient presents febrile, tachycardic, patient has some wheeze on exam. Patient was hoarse but no muffled voice. Swallowing secretions without issue. Initially patient states no swelling of the anterior neck but has been states there maybe some. She has no pain with movement. Oropharyngeal exam is otherwise negative. Patient has had slow worsening of symptoms over the past 4 days and while flying back from [facility]. Labs. White count 3.3 patient is chronically low, patient has macrocytosis but normal hemoglobin platelets of 50 was 123 on October of 2023. Coags are negative. Dimer 2338 Sodium is 131 potassium 3.9 chloride 99 with a CO2 of 20 BUN 19 creatinine 0.73 glucose of 107, lactate 0.9 LFTs are negative except for an AST of 40, procalcitonin is 0.101 Troponin 0.076, was repeated and is BNP is 1400 EKG shows sinus tach, left anterior fascicular block. Group a strep is negative respiratory panel is positive for influenza A H1N1. Chest x-ray shows shows no acute change Patient received fluids, Tylenol, steroids. She would DuoNeb which had some improvement of aeration but no significant change in wheeze. Patient did receive 1 dose of racemic epinephrine. Patient had additional imaging to evaluate for possible retropharyngeal abscess, soft tissue neck and CT PE as she has had chest tightness and discomfort as well Spoke with radiology 1702 Dr. Quick and appears quite narrow through airway, she will have partner take a look and get back to me shortly. They will call back with any critical findings. 1704: On recheck patient is feeling much improved. She is still slightly hoarse. She is able to lay back and fall asleep without issue. On nasal cannula but no other interventions. Patient states that she feels improved as well. ENT read for soft tissue neck is negative for acute change. CT PE shows no acute pulmonary embolism no focal pulmonary consolidation there is some mild bilateral bronchial wall thickening could be bronchiolitis infectious or inflammatory etiology no fluid collection or abscess esophagus is mildly patulous. Repeat troponin is indeterminate did trend up slightly. Patient feels much improved after treatment. She is influenza A positive which is likely the source of her symptoms. Spoke to Dr. Juarez for observation for serial troponin and monitoring. Spoke with Dr. Juarez, will admit for observation. Patient has been on 2 L not having any increasing O2 requirements does appear to be improved in terms of symptoms. Troponin still indeterminate but did trend upward slightly. The patient feels much better. Patient's about 4 days into symptoms so we will hold off on any Tamiflu. 1831: Patient continues to feel much improved on recheck. Reviewed her findings with her and her . Discharge Plan Departure Patient Disposition: Admitted as Observation Clinical Impression: Influenza A, Elevated troponin Admit Date/Time: 06/29/24 18:20 Admit Provider: Sriram Juarez
[2024-06-29 15:46] LABS: Add Manual Diff / Slide Review YES; Alanine Aminotransferase 22 IU/L (<35); Albumin 4.2 g/dL (3.5-5.0); Albumin Globulin Ratio 1.4 (1.0-2.8); Alkaline Phosphatase 57 U/L (38-126); Aspartate Aminotransferase 45 IU/L (14-36); Bilirubin Total 0.6 mg/dL (0.2-1.3); Blood Urea Nitrogen 19 mg/dL (7-17); Calcium 8.4 mg/dL (8.4-10.2); Carbon Dioxide 22 mmol/L (22-32); Chloride 99 mmol/L (98-107); Estimated Glomerular Filt Rate > 60 mL/min (>60); Glucose 107 mg/dL (80-110); HEMOLYSIS 34 (0-50); Lipase 101 U/L (23-300); PTT Partial Thromboplastin Tim 32 SECONDS (25.1-36.5); Potassium 3.9 mmol/L (3.4-5.1); Sodium 131 mmol/L (137-145); Total Protein 7.2 g/dL (6.3-8.2)
[2024-06-29 15:47] LABS: Lactate (Lactic Acid) 0.9 mmol/L (0.7-2.1)
[2024-06-29] MEDS: ALBUTEROL/IPRATROPIUM 3 ML AMPUL INH (15:47)
[2024-06-29 15:54] LABS: Strep Grp A by PCR Rapid Negative (Negative)
[2024-06-29 15:57] LABS: NT-proBNP (BNP-Adult 18+) 1400 pg/mL (<450); Troponin I 0.076 ng/mL (0.01-0.034)
[2024-06-29 15:58] LABS: D Dimer 2338 ng/ml (<500)
[2024-06-29] MEDS: methylPREDNISolone 125 MG/2 ML VIAL IV (15:59)
[2024-06-29] MEDS: ONDANSETRON 4 MG/2 ML INJ IV (15:59)
[2024-06-29] MEDS: PIPERACILLIN/TAZO 4.5 GM in SODIUM CHLORIDE 0.9% 100 ML IV (16:00)
[2024-06-29] MEDS: SODIUM CHLORIDE 0.9% 1,000 ML 1000 ML IV (16:00)
[2024-06-29] MEDS: ACETAMINOPHEN IV 1,000 MG/100 ML VIAL 400 MG IV (16:01)
[2024-06-29] MEDS: RACEPINEPHRINE 0.5 ML NEB INH (16:02)
[2024-06-29 16:03] LABS: Procalcitonin 0.101 ng/mL (<0.5)
[2024-06-29 16:08] LABS: RBC Morphology Normal Morphology
--- NOTE | 2024-06-29 16:08 | DI.CT.S_ITS ---
PROCEDURE: CT ANGIO CHEST PE PROTOCOL INDICATIONS: r/o retropharyngeal abscess, h throat/cp, flying, sob + trop TECHNIQUE: After the administration of intravenous contrast, 2 mm thick sections acquired from the pulmonary apices to the posterior costophrenic angles. 3-dimensional maximum intensity projection (MIP) coronal and sagittal reformats were then acquired through the thorax. For radiation dose reduction, the following was used: automated exposure control, adjustment of mA and/or kV according to patient size. COMPARISON: [facility], CT, CT ABDOMEN PANCREATIC PROTOCOL, 12/17/2023, 9:32. FINDINGS: Image quality: Diagnostic. Pulmonary arteries: Enhancement of the pulmonary arteries is adequate. No filling defect in the pulmonary vasculature to the level of the proximal subsegmental pulmonary arteries. Main pulmonary artery is normal in caliber. Lower Neck: No enlarged lymph nodes. Thyroid: No thyroid nodules which require sonographic follow up, per consensus guidelines. Axillae: No enlarged lymph nodes. Chest Wall: Unremarkable. Bones: No acute fractures. No aggressive appearing lytic or blastic osseous lesions. [id number] multilevel degenerative changes of the spine. Lungs and Pleura: No pneumothorax or pleural effusions. No suspicious pulmonary nodule or consolidation. Dependent atelectasis and bilateral lower lobe linear atelectasis. Patent central airways. Mild bilateral bronchial wall thickening. Mild biapical pleural parenchymal scarring. Heart: Heart size is normal. No pericardial effusion. Thoracic Vessels: Ascending thoracic aorta is at the upper limits of normal measuring 3.8 x 3.8 cm (4/82). Mild calcification of the thoracic aorta. Origins of the great vessels are patent. Mediastinum and Yue: No enlarged lymph nodes. No mediastinal fluid collection. Esophagus: No wall thickening. Esophagus is mildly patulous. Small hiatal hernia. Upper Abdomen: Visualized upper abdomen solid organs and bowel loops appear normal. IMPRESSION: 1. No acute pulmonary embolism to the level of the proximal subsegmental pulmonary arteries. 2. No focal pulmonary consolidation. Mild bilateral bronchial wall thickening which may represent bronchiolitis of infectious or inflammatory etiology. 3. No mediastinal fluid collection or abscess. 4. Esophagus is mildly patulous. Dictated by: Betty Ng M.D. on 06/29/2024 at 16:23 Approved by: Betty Ng M.D. on 06/29/2024 at 16:31
--- NOTE | 2024-06-29 16:08 | DI.CT.S_ITS ---
PROCEDURE: CT SOFT TISSUE NECK W CON INDICATIONS: r/o retropharyngeal abscess, h throat/cp, flying, sob + trop TECHNIQUE: After the administration of intravenous contrast, 3.0 mm axial sections acquired from the sella to the aortic arch. Additional oblique axial 3.0 mm sections acquired through the pharynx. 3 mm thick coronal and sagittal reformats were generated. For radiation dose reduction, the following was used: automated exposure control. COMPARISON: None. FINDINGS: Image quality: Excellent. Lymph nodes: No enlarged lymph nodes seen throughout the neck. Vessels: Visualized vasculature appears patent. Atherosclerotic vascular calcifications. Neck spaces: The oropharynx, nasopharynx, and pharynx demonstrate no mucosal lesions. The vocal cords, false vocal cords, pyriform sinuses, epiglottis, vallecula, and tongue base all appear normal. Extramucosal spaces appear unremarkable. Glands: The parotid and submandibular glands appear normal. Thyroid gland demonstrates no significant abnormality.. Miscellaneous: Visualized brain and orbits appear normal. Lens replacements. Lung apices appear clear. Superficial soft tissues appear normal. Bones: No suspicious bony lesions. Visualized sinuses and mastoids appear unremarkable. Multilevel degenerative changes of the spine. IMPRESSION: No retropharyngeal abscess. No acute findings within the neck. Dictated by: Nitin Marquez M.D. on 06/29/2024 at 17:08 Approved by: Nitin Marquez M.D. on 06/29/2024 at 17:11
[2024-06-29 16:18] LABS: Neutrophils Absolute Manual 1815 /uL (3000-5900); Total Cells Counted 100
[2024-06-29 16:30] LABS: Adenovirus Not Detected (Not Detect); B. parapertussis Not Detected (Not Detecte); Bordetella pertussis Not Detected (Not Detect); Chlamydophila pneumoniae Not Detected (Not Detect); Coronavirus 229E Not Detected (Not Detect); Coronavirus HKU1 Not Detected (Not Detect); Coronavirus NL 63 Not Detected (Not Detect); Coronavirus OC43 Not Detected (Not Detect); Human Metapneumovirus Not Detected (Not Detect); Human Rhinovirus/Enterovirus Not Detected (Not Detect); Influenza A H1-2009 Detected (Not Detect); Influenza B Not Detected (Not Detect); Mycoplasma pneumoniae Not Detected (Not Detect); Parainfluenza Virus 1 Not Detected (Not Detect); Parainfluenza Virus 2 Not Detected (Not Detect); Parainfluenza Virus 3 Not Detected (Not Detect); Parainfluenza Virus 4 Not Detected (Not Detect); Respiratory Syncytial Virus Not Detected (Not Detect); SARS- CoV-2 Not Detected (Not Detecte)
--- NOTE | 2024-06-29 17:03 | PC.NURSE ---
Upon patient arrival to ED room she is SOB, with labored breathing and oxygen saturation 90% on RA. This RN place patient on 2 L via NC and patient oxygen saturation improves to WNL. Patient has intermittent episodes of coughing then stating I can't breath. This RN remains at bedside and medicates per DEC. RT at bedside and provider made aware. After CT patient reports feeling much better and does not appear to be SOB at this time. She remains on 2 L via NC. Call light within reach and encouraged to use for any changes/needs.
[2024-06-29] MEDS: KETOROLAC 30 MG/ML VIAL 15 MG IV (17:13)
[2024-06-29 18:00] LABS: Troponin I 0.082 ng/mL (0.01-0.034)
--- NOTE | 2024-06-29 18:39 | P.HP_ITS ---
History of Present Illness History of Present Illness Date Patient Seen: 06/29/24 Time Patient Seen: 18:39 Chief complaint: difficulty swallowing, fever, weakness Narrative: 78-year-old female admitted via the emergency department with influenza A. Patient reported upon presentation to the ER several days of tightness in her throat and chest and shortness of breath sore throat severe hoarseness etcetera. Patient had been traveling in [place], and actually cut short her trip because of her illness. She arrived back day she presented to the ER, driving directly from the [place] airport to [facility] Emergency Department. Her fever in the ER was first time she felt as though she had had a fever. She reported a cough that has been minimally productive. No nausea vomiting maybe some loose sort of stool (although traveling of course). Past history of hypertension hyperlipidemia asthma/COPD In the ER she was found to have a bit leukopenic although seems to be baseline for patient, she was a bit more thrombocytopenic than usual, she had a positive serology for influenza A, and indeterminate troponin. ECG did not show ischemic changes Per ER physician she seemed almost to be stridorous at times. She was given a racemic epi treatment as well as albuterol nebulizers and parental corticosteroids and IV fluids and by the time patient received all of this was feeling much better and looking much better. She had some mild hypoxia on room air as well, which appears to be improved [facility] Medical History Lumbar spondylosis SI (sacroiliac) joint dysfunction Lumbar radiculopathy COVID-19 virus infection Impacted cerumen, left ear Kyphosis Lower urinary tract symptoms (LUTS) Postmenopausal atrophic vaginitis Obstructive sleep apnea syndrome Snoring Excessive daytime sleepiness Facet arthropathy, lumbosacral Oral candidiasis BCC (basal cell carcinoma of skin) Shoulder pain Lumbar spine pain Foot pain (1998) Cervical spine disease Partial blindness (1996) Polio (195) Chronic back pain (2011) Scoliosis Urinary incontinence Asthma Alcohol abuse Surgical History Anesthesia Status post hammer toe correction (~1999) History of cataract removal with insertion of prosthetic lens Status post bunionectomy (~1999) Family History Brother Overdose Father Heart disease Hypertension CAD (coronary artery disease) Myocardial infarction Grandfather Parkinsons Grandmother Dementia Mother Dementia Arthritis Bronchitis Ovarian cancer Grandfather No problems noted. Grandmother No problems noted. Social History marital status: household members: spouse Smoking Status: Former smoker alcohol intake: never substance use type: amphetamines Meds Home Medications and Allergies Home Medications Medication Instructions Recorded Confirmed Type cholecalciferol (vitamin D3) 25 25 mcg PO DAILY 05/04/22 06/29/24 History mcg (1,000 unit) capsule omega 2-dmg-bgh-fish oil 500 mg 1 cap PO TID 05/04/22 06/29/24 History (200mg-300mg)-1,000 mg capsule vitamin B complex (B 1 tab PO DAILY 05/04/22 06/29/24 History Complex-Vitamin B12 tablet) lisinopril 10 mg tablet 10 mg PO DAILY #90 tabs 11/05/23 06/29/24 Rx amitriptyline 10 mg tablet 10 mg PO ONCE PM #30 tabs 01/14/24 06/29/24 Rx inhalational spacing device #1 ea 04/02/24 06/29/24 Rx (Flexichamber spacer) albuterol sulfate 90 mcg/actuation 2 puff inhalation BEDTIME PRN 04/03/24 06/29/24 Rx aerosol inhaler shortness of breath or wheezing #6.7 grams beclomethasone dipropionate 40 1 inh inhalation BEDTIME #10.6 04/08/24 06/29/24 Rx mcg/actuation HFA breath activated grams aerosol (Qvar RediHaler) celecoxib 200 mg capsule 200 mg PO BID PRN Pain (Scale 06/29/24 06/29/24 History Score 7-10) Allergies Allergy/AdvReac Type Severity Reaction Status Date / Time No Known Drug Allergies Allergy Verified 06/29/24 15:21 Review of Systems Review of Systems ROS: Yes All systems reviewed with the patient and are negative except as otherwise documented Exam Vital Signs (past 8 hours): - 06/29/24 15:05 06/29/24 15:47 06/29/24 16:01 Temperature 102.1 F H Pulse Rate 115 H 112 H 116 H Respiratory Rate 22 18 Blood Pressure 175/80 H Pulse Oximetry 91 95 96 Oxygen Delivery Method Room Air Nasal Cannula Nasal Cannula Oxygen Flow Rate 2 2 06/29/24 16:05 06/29/24 16:06 06/29/24 16:06 Temperature Pulse Rate 132 H 122 H Respiratory Rate Blood Pressure 192/128 H Pulse Oximetry 96 96 Oxygen Delivery Method Oxygen Flow Rate 06/29/24 16:10 06/29/24 16:13 06/29/24 16:13 Temperature Pulse Rate 125 H 109 H Respiratory Rate 20 26 H Blood Pressure 215/93 H Pulse Oximetry 95 96 Oxygen Delivery Method Nasal Cannula Oxygen Flow Rate 2 06/29/24 16:15 06/29/24 16:15 06/29/24 16:39 Temperature Pulse Rate 122 H 102 H Respiratory Rate 23 Blood Pressure 174/79 H Pulse Oximetry 97 98 Oxygen Delivery Method Nasal Cannula Oxygen Flow Rate 2 06/29/24 16:40 06/29/24 16:44 06/29/24 16:44 Temperature Pulse Rate 100 H 101 H Respiratory Rate 19 24 Blood Pressure 133/63 Pulse Oximetry 97 97 Oxygen Delivery Method Oxygen Flow Rate 06/29/24 16:45 06/29/24 16:45 06/29/24 16:50 Temperature Pulse Rate 96 H 97 H Respiratory Rate 30 H 27 H Blood Pressure 127/56 L Pulse Oximetry 96 96 Oxygen Delivery Method Nasal Cannula Oxygen Flow Rate 2 06/29/24 16:55 06/29/24 17:00 06/29/24 17:00 Temperature Pulse Rate 99 H 100 H Respiratory Rate 35 H 52 H Blood Pressure 120/56 L Pulse Oximetry 96 96 Oxygen Delivery Method Nasal Cannula Oxygen Flow Rate 2 2 06/29/24 17:15 06/29/24 17:15 06/29/24 17:30 Temperature Pulse Rate 95 H Respiratory Rate 22 Blood Pressure 114/59 L 138/63 Pulse Oximetry 91 Oxygen Delivery Method Oxygen Flow Rate 2 06/29/24 17:30 06/29/24 17:45 06/29/24 17:45 Temperature Pulse Rate 94 H 85 Respiratory Rate 32 H 34 H Blood Pressure 120/57 L Pulse Oximetry 95 94 Oxygen Delivery Method Nasal Cannula Oxygen Flow Rate 2 06/29/24 18:00 06/29/24 18:00 06/29/24 18:15 Temperature Pulse Rate 83 Respiratory Rate 33 H Blood Pressure 111/55 L 143/64 H Pulse Oximetry 94 Oxygen Delivery Method Oxygen Flow Rate 09/01/24 18:15 06/29/24 18:30 06/29/24 18:30 Temperature Pulse Rate 89 82 Respiratory Rate 26 H 20 Blood Pressure 114/58 L Pulse Oximetry 95 93 Oxygen Delivery Method Nasal Cannula Nasal Cannula Oxygen Flow Rate 2 2 Oxygen Delivery Method Nasal Cannula Oxygen Flow Rate 2 Narrative Exam Narrative: Elderly female who looks ill lying in hospital bed HEENT-unremarkable Lungs-somewhat diminished breath sounds with prolonged expiratory phase, deep breathing produces coughing Heart-regular rate and rhythm Abdomen-benign Objective ECG Impression: 12 lead ECG without acute ischemic changes Imaging CT scan - chest: Radiologist's impression: PROCEDURE: CT ANGIO CHEST PE PROTOCOL INDICATIONS: r/o retropharyngeal abscess, h throat/cp, flying, sob + trop TECHNIQUE: After the administration of intravenous contrast, 2 mm thick sections acquired from the pulmonary apices to the posterior costophrenic angles. 3-dimensional maximum intensity projection (MIP) coronal and sagittal reformats were then acquired through the thorax. For radiation dose reduction, the following was used: automated exposure control, adjustment of mA and/or kV according to patient size. COMPARISON: [facility], CT, CT ABDOMEN PANCREATIC PROTOCOL, 12/17/2023, 9:32. FINDINGS: Image quality: Diagnostic. Pulmonary arteries: Enhancement of the pulmonary arteries is adequate. No filling defect in the pulmonary vasculature to the level of the proximal subsegmental pulmonary arteries. Main pulmonary artery is normal in caliber. Lower Neck: No enlarged lymph nodes. Thyroid: No thyroid nodules which require sonographic follow up, per consensus guidelines. Axillae: No enlarged lymph nodes. Chest Wall: Unremarkable. Bones: No acute fractures. No aggressive appearing lytic or blastic osseous lesions. [id number] multilevel degenerative changes of the spine. Lungs and Pleura: No pneumothorax or pleural effusions. No suspicious pulmonary nodule or consolidation. Dependent atelectasis and bilateral lower lobe linear atelectasis. Patent central airways. Mild bilateral bronchial wall thickening. Mild biapical pleural parenchymal scarring. Heart: Heart size is normal. No pericardial effusion. Thoracic Vessels: Ascending thoracic aorta is at the upper limits of normal measuring 3.8 x 3.8 cm (). Mild calcification of the thoracic aorta. Origins of the great vessels are patent. Mediastinum and Yue: No enlarged lymph nodes. No mediastinal fluid collection. Esophagus: No wall thickening. Esophagus is mildly patulous. Small hiatal hernia. Upper Abdomen: Visualized upper abdomen solid organs and bowel loops appear normal. IMPRESSION: 1. No acute pulmonary embolism to the level of the proximal subsegmental pulmonary arteries. 2. No focal pulmonary consolidation. Mild bilateral bronchial wall thickening which may represent bronchiolitis of infectious or inflammatory etiology. 3. No mediastinal fluid collection or abscess. 4. Esophagus is mildly patulous. Labs 06/30/24 06:20 06/30/24 06:20 Labs: Laboratory Results - last 24 hr 06/29/24 06/29/24 06/29/24 15:24 15:28 17:28 WBC 3.3 L RBC 3.78 L Hgb 13.3 Hct 38.2 MCV 101.1 H MCH 35.3 H MCHC 34.9 RDW 13.4 Plt Count 50 L Neut % (Auto) Not Reportable Lymph % (Auto) Not Reportable [place] % (Auto) Not Reportable Eos % (Auto) Not Reportable Baso % (Auto) Not Reportable Lymph # (Auto) Not Reportable [place] # (Auto) Not Reportable Baso # (Auto) Not Reportable Total Counted 100 Seg Neutrophils % 45.0 Band Neutrophils % 10.0 H Lymphocytes % (Manual) 12.0 L Monocytes % (Manual) 32.0 H Eosinophils % (Manual) 1.0 L Neutrophils # (Manual) 1815 L RBC Morphology Normal morphology PT 12.1 INR 1.1 APTT 32 D-Dimer 2338 H Sodium 131 L Potassium 3.9 Chloride 99 Carbon Dioxide 22 BUN 19 H Creatinine 0.73 Estimated GFR > 60 BUN/Creatinine Ratio 26.0 H Glucose 107 Lactate 0.9 Calcium 8.4 Total Bilirubin 0.6 AST 45 H ALT 22 Alkaline Phosphatase 57 Total Creatine Kinase 114 Troponin I 0.076 H 0.082 H NT-Pro-B Natriuret Pep 1400 H Total Protein 7.2 Albumin 4.2 Globulin 3.0 Albumin/Globulin Ratio 1.4 Lipase 101 Procalcitonin 0.101 Chlamy pneumoniae PCR Not detected Adenovirus (PCR) Not detected B.parapertussis DNA PCR Not detected Coronavirus OC43 (PCR) Not detected Coronavirus HKU1 (PCR) Not detected Coronavirus 229E (PCR) Not detected SARS-CoV-2 (PCR) Not detected Coronavirus NL63 (PCR) Not detected Human Metapneumovir PCR Not detected Influ A (H1N1 Seas) PCR Detected H Influenza Type B (PCR) Not detected M. pneumoniae (PCR) Not detected Parainfluenza 1 (PCR) Not detected Parainfluenza 2 (PCR) Not detected Parainfluenza 3 (PCR) Not detected Parainfluenza 4 (PCR) Not detected RSV (PCR) Not detected Entero/Rhino (PCR) Not detected Group A Strep (PCR) Negative Assessment & Plan Assessment & Plan narrative: 1. Acute hypoxic respiratory failure secondary to acute Influenza A infection combined with probable exacerbation of underlying chronic lung disease (COPD/asthma). Much improved with nebulizer treatments as above. Continue with supportive care with nebulizer treatments and I think she would benefit from corticosteroids as well. While hospitalized the should be administered parenterally. No clear evidence of any airway compromise on imaging although clinically it seem like that might possibly be the case briefly during her ER evaluation. That has not recurred and patient seems to be much better. Continue with treatments as above Overall patient also appear somewhat volume depleted/dehydrated and would benefit from some additional IV fluids 2. Borderline troponin-plan to repeat this. ECG reassuring. Doubt there is actual cardiac ischemia but patient does have limited number of risk factors 3. Hypertension-continue patient's usual meds 4. Hyperlipidemia-continue patient's usual meds 5. Thrombocytopenia-likely secondary to her viral infection. Plan to repeat numbers tomorrow. This is a contraindication to chemo prophylaxis for VTE with heparin products. Recommend patient avoid aspirin and NSAIDs 6. VTE prophylaxis-SCDs alone as above not a candidate for chemo prophylaxis 7. Code status-full code in the event of a sudden cardiac or respiratory arrest Time-Based Coding :: [TOTAL MINUTES] spent with patient and on the chart (including review of chart, obtaining history, exam, reviewing outside data, placing orders, documenting exam and treatment plan, and counseling patient) on [DATE]. PROFEE Charge Codes Initial inpatient/observation care: [id number]
[2024-06-29] MEDS: methylPREDNISolone 125 MG/2 ML VIAL 60 MG IV (20:45)
[2024-06-29] MEDS: AMITRIPTYLINE 10 MG TABLET PO (20:45)
[2024-06-29] MEDS: DEXTROSE 5%-0.9% NS 1,000 ML 125 ML IV (20:45)
[2024-06-30] VITALS (7 sets, daily range): BP systolic 115–136; BP diastolic 55–85; PULSE 51–89; RESP 16–20; TEMP 36.4–37.6; O2SAT 92–96
[2024-06-30] MEDS: methylPREDNISolone 125 MG/2 ML VIAL 60 MG IV ×4 (01:47→19:48)
[2024-06-30] MEDS: ACETAMINOPHEN 325 MG TABLET 650 MG PO (01:47)
[2024-06-30] MEDS: DEXTROSE 5%-0.9% NS 1,000 ML 125 ML IV ×3 (05:23→21:44)
[2024-06-30 06:55] LABS: Add Manual Diff / Slide Review NO; Basophils Absolute Auto 0 /uL (0-100); Basophils Percent Auto 0.3 % (0-2); Eosinophils Absolute Auto 0 /uL (0-450); Hemoglobin 12.8 g/dL (12.0-16.0); Lymphocytes Absolute Auto 300 /uL (1100-4500); Lymphocytes Percent Auto 9.1 % (25-40); Mean Corpuscular HGB Conc 33.8 % (30-36); Mean Corpuscular Hemoglobin 34.8 PG (26-34); Mean Corpuscular Volume 102.9 fL (80-100); Monocytes Absolute Auto 600 /uL (0-900); Monocytes Percent Auto 15.4 % (3-14); Neutrophils Absolute Auto 2900 /uL (1500-7000); Neutrophils Percent Auto 75.2 % (50-75); Platelet Count 50 X10^3/uL (150-400); Red Blood Cell Count 3.69 X10^6/uL (4.0-5.2); Red Cell Distribution Width 13.6 % (11.6-14.8); White Blood Cell Count 3.8 X10^3/uL (4.5-11.0)
[2024-06-30 07:04] LABS: BUN Creatinine Ratio 20.6 (6-22); Blood Urea Nitrogen 13 mg/dL (7-17); Calcium 7.4 mg/dL (8.4-10.2); Carbon Dioxide 26 mmol/L (22-32); Chloride 105 mmol/L (98-107); Estimated Glomerular Filt Rate > 60 mL/min (>60); Glucose 179 mg/dL (80-110); HEMOLYSIS < 15 (0-50); Potassium 4.1 mmol/L (3.4-5.1); Sodium 137 mmol/L (137-145)
[2024-06-30 07:15] LABS: Troponin I 0.029 ng/mL (0.01-0.034)
[2024-06-30] MEDS: CHOLECALCIFEROL (VITAMIN D3) 1,000 UNIT TABLET 1000 UNIT PO (09:10)
[2024-06-30] MEDS: lisinopriL 10 MG TABLET PO (09:10)
[2024-06-30] MEDS: SODIUM CHLORIDE 0.9% FLUSH 10 ML IV ×2 (09:11→21:45)
[2024-06-30] MEDS: BENZOCAINE/MENTHOL 1 LOZ PKT 1 EACH PO (09:17)
--- NOTE | 2024-06-30 10:24 | PM.PN.1 ---
Subjective Subjective Date Patient Seen: 06/30/24 Time Patient Seen: 10:24 Interval history: Patient reports feeling much better since she presented to the emergency department. Still had another event what she felt like she was having trouble breathing and or swallowing but it was super brief not even long enough to call for nursing assistance. Overall feels much better. It has not really been up out of bed however No new complaints or issues overnight Repeat troponin normal. Lab work this morning basically stable CBC including the modest thrombocytopenia. Chemistries remarkable for a nonfasting blood sugar 179 Exam Vital Signs (past 8 hours): - 06/30/24 03:00 06/30/24 08:00 Temperature 97.5 F L 99 F Pulse Rate 51 L 62 Respiratory Rate 18 16 Blood Pressure 124/55 L 125/73 Pulse Oximetry 96 93 Oxygen Flow Rate 3 0 Oxygen Delivery Method Nasal Cannula Oxygen Flow Rate 0 Objective Labs 06/30/24 06:20 06/30/24 06:20 Labs: Laboratory Results - last 24 hr 06/29/24 06/29/24 06/29/24 15:24 15:28 17:28 WBC 3.3 L RBC 3.78 L Hgb 13.3 Hct 38.2 MCV 101.1 H MCH 35.3 H MCHC 34.9 RDW 13.4 Plt Count 50 L Neut % (Auto) Not Reportable Lymph % (Auto) Not Reportable [place] % (Auto) Not Reportable Eos % (Auto) Not Reportable Baso % (Auto) Not Reportable Neut # (Auto) Lymph # (Auto) Not Reportable [place] # (Auto) Not Reportable Eos # (Auto) Baso # (Auto) Not Reportable Total Counted 100 Seg Neutrophils % 45.0 Band Neutrophils % 10.0 H Lymphocytes % (Manual) 12.0 L Monocytes % (Manual) 32.0 H Eosinophils % (Manual) 1.0 L Neutrophils # (Manual) 1815 L RBC Morphology Normal morphology PT 12.1 INR 1.1 APTT 32 D-Dimer 2338 H Sodium 131 L Potassium 3.9 Chloride 99 Carbon Dioxide 22 BUN 19 H Creatinine 0.73 Estimated GFR > 60 BUN/Creatinine Ratio 26.0 H Glucose 107 Lactate 0.9 Calcium 8.4 Total Bilirubin 0.6 AST 45 H ALT 22 Alkaline Phosphatase 57 Total Creatine Kinase 114 Troponin I 0.076 H 0.082 H NT-Pro-B Natriuret Pep 1400 H Total Protein 7.2 Albumin 4.2 Globulin 3.0 Albumin/Globulin Ratio 1.4 Lipase 101 Procalcitonin 0.101 Chlamy pneumoniae PCR Not detected Adenovirus (PCR) Not detected B.parapertussis DNA PCR Not detected Coronavirus OC43 (PCR) Not detected Coronavirus HKU1 (PCR) Not detected Coronavirus 229E (PCR) Not detected SARS-CoV-2 (PCR) Not detected Coronavirus NL63 (PCR) Not detected Human Metapneumovir PCR Not detected Influ A (H1N1 Seas) PCR Detected H Influenza Type B (PCR) Not detected M. pneumoniae (PCR) Not detected Parainfluenza 1 (PCR) Not detected Parainfluenza 2 (PCR) Not detected Parainfluenza 3 (PCR) Not detected Parainfluenza 4 (PCR) Not detected RSV (PCR) Not detected Entero/Rhino (PCR) Not detected Group A Strep (PCR) Negative 06/30/24 06:20 WBC 3.8 L RBC 3.69 L Hgb 12.8 Hct 38.0 MCV 102.9 H MCH 34.8 H MCHC 33.8 RDW 13.6 Plt Count 50 L Neut % (Auto) 75.2 H Lymph % (Auto) 9.1 L [place] % (Auto) 15.4 H Eos % (Auto) 0.0 L Baso % (Auto) 0.3 Neut # (Auto) 2900 Lymph # (Auto) 300 L [place] # (Auto) 600 Eos # (Auto) 0 Baso # (Auto) 0 Total Counted Seg Neutrophils % Band Neutrophils % Lymphocytes % (Manual) Monocytes % (Manual) Eosinophils % (Manual) Neutrophils # (Manual) RBC Morphology PT INR APTT D-Dimer Sodium 137 Potassium 4.1 Chloride 105 Carbon Dioxide 26 BUN 13 Creatinine 0.63 Estimated GFR > 60 BUN/Creatinine Ratio 20.6 Glucose 179 H Lactate Calcium 7.4 L Total Bilirubin AST ALT Alkaline Phosphatase Total Creatine Kinase Troponin I 0.029 NT-Pro-B Natriuret Pep Total Protein Albumin Globulin Albumin/Globulin Ratio Lipase Procalcitonin Chlamy pneumoniae PCR Adenovirus (PCR) B.parapertussis DNA PCR Coronavirus OC43 (PCR) Coronavirus HKU1 (PCR) Coronavirus 229E (PCR) SARS-CoV-2 (PCR) Coronavirus NL63 (PCR) Human Metapneumovir PCR Influ A (H1N1 Seas) PCR Influenza Type B (PCR) M. pneumoniae (PCR) Parainfluenza 1 (PCR) Parainfluenza 2 (PCR) Parainfluenza 3 (PCR) Parainfluenza 4 (PCR) RSV (PCR) Entero/Rhino (PCR) Group A Strep (PCR) PFSH Medical History Lumbar spondylosis SI (sacroiliac) joint dysfunction Lumbar radiculopathy COVID-19 virus infection Impacted cerumen, left ear Kyphosis Lower urinary tract symptoms (LUTS) Postmenopausal atrophic vaginitis Obstructive sleep apnea syndrome Snoring Excessive daytime sleepiness Facet arthropathy, lumbosacral Oral candidiasis BCC (basal cell carcinoma of skin) Shoulder pain Lumbar spine pain Foot pain (1998) Cervical spine disease Partial blindness (1996) Polio (1951) Chronic back pain (2011) Scoliosis Urinary incontinence Asthma Alcohol abuse Surgical History Anesthesia Status post hammer toe correction (~1999) History of cataract removal with insertion of prosthetic lens Status post bunionectomy (~1999) Family History Brother Overdose Father Heart disease Hypertension CAD (coronary artery disease) Myocardial infarction Grandfather Parkinsons Grandmother Dementia Mother Dementia Arthritis Bronchitis Ovarian cancer Grandfather No problems noted. Grandmother No problems noted. Social History marital status: household members: spouse Smoking Status: Former smoker alcohol intake: never substance use type: amphetamines Assessment & Plan Assessment & Plan narrative: 1. Influenza A-continue supportive care. 2. Acute respiratory failure-continue supportive care including oxygen. Hopefully as the influenza diminishes she will improve 3. Cardiac-troponin returned to normal. No evidence of cardiac ischemia. Not an active issue at this time in my opinion 4. Thrombocytopenia-stable anyway. Plan to repeat tomorrow. 5. Hypertension-continue monitor numbers and continue patient's meds Time-Based Coding :: [TOTAL MINUTES] spent with patient and on the chart (including review of chart, obtaining history, exam, reviewing outside data, placing orders, documenting exam and treatment plan, and counseling patient) on [DATE]. PROFEE Charge codes Subsequent inpatient/observation care: [id number]
--- NOTE | 2024-06-30 11:14 | PC.NURSE ---
Patient tried cepocal lonzenger this morning as ordered prn, patient asking for throat spray and cough syrup. Page sent to Dr. Juarez.
[2024-06-30] MEDS: GUAIFENESIN/DM 200/20 MG/10 ML UDC PO ×2 (12:02→19:47)
--- NOTE | 2024-06-30 12:45 | CM.DANOTE ---
Initial DCP Assessment Visit Note Reviewed EMR and team rounds for status updates. This SQL TECH did not meet with pt f/f due to having influenza type A, and was very symptomatic at the time of this visit. Pt lives independently at baseline with her spouse in their own home here in [place]. Her spouse will plan to transport her home once she's medically stable, likely on Sunday 07/01. Payor: GOYO MEÍJA [facility] PCP: Dr. Israel Pt is a 78 year-old F who presented to the ED last evening with c/o persistent bronchitis, fevers, tightness in her throat/chest, shortness of breath, sore throat, and hoarseness fo the last 4-days. She and her spouse had been travelling in [place] and needed to come home early due to her feeling progressively more ill, they actually came straight from the airport to the ED. She states that she's also having difficulty swallowing meds. She was started on IV fluids, tylenol, and steroids in the ED. Troponin was elevated but has now trended down. Per Dr. Juarez, the plan is to monitor Troponin 1-more night, continue fluids and pain meds. Pt does share that she is feeling much better today than she had yesterday when she first came in to the ED. DCP will continue to follow and assist with any evolving d/c needs, however at this time no needs are anticipated for CM assistance. Discharge Planning/Care Management Advanced directive, confirm from FAMILY Start: 06/29/24 20:18 Freq: Q24H Status: Active Protocol: Document 06/29/24 20:18 MM (Rec: 06/30/24 01:40 MM [id number]) Advance Directive, confirm on record Time 22:00 Person contacted Patient Copy received No CM Discharge Assessment Start: 06/30/24 12:40 Freq: Status: Active Protocol: Document 06/30/24 12:42 DPL (Rec: 06/30/24 12:45 DPL [id number]) Discharge Planning Assessment Assigned Surveying Or Spatial Science Technician CASSI Iraheta Advance Directives? Yes Advance Directives on File No History Provided By Medical Record Has Patient been admitted in last 30 No days? Prior Living Arrangements House Household Members spouse Type of transporation used prior to Drives own vehicle admit Independent with ADL's Yes Is patient alert and oriented? Yes Caregiver for Another No Comment No identified d/c needs identified at this time. Barriers to Discharge No Discharge Plan Home Transportation Arrangement Spouse Referrals Initiated None needed Whiteboard Updated in Patient Room with No name and ext. # of Surveying Or Spatial Science Technician Comment SQL TECH did not enter the room due to Infuenza A virus. Review Status In Process Please Provide Date Initial DC 06/30/24 Assessment Was Performed
[2024-06-30] MEDS: AMITRIPTYLINE 10 MG TABLET PO (19:48)
[2024-07-01] MEDS: methylPREDNISolone 125 MG/2 ML VIAL 60 MG IV (02:13)
[2024-07-01 03:00] VITALS: BP 146/77; PULSE 63; RESP 18; TEMP 37.3; O2SAT 93
[2024-07-01] MEDS: DEXTROSE 5%-0.9% NS 1,000 ML 125 ML IV (05:40)
[2024-07-01 05:46] LABS: Add Manual Diff / Slide Review NO; Basophils Absolute Auto 0 /uL (0-100); Basophils Percent Auto 0.3 % (0-2); Eosinophils Absolute Auto 0 /uL (0-450); Hemoglobin 12.4 g/dL (12.0-16.0); Lymphocytes Absolute Auto 500 /uL (1100-4500); Lymphocytes Percent Auto 4.8 % (25-40); Mean Corpuscular HGB Conc 34.4 % (30-36); Mean Corpuscular Hemoglobin 35.1 PG (26-34); Monocytes Absolute Auto 800 /uL (0-900); Monocytes Percent Auto 8.1 % (3-14); Neutrophils Absolute Auto 8200 /uL (1500-7000); Neutrophils Percent Auto 86.8 % (50-75); Platelet Count 68 X10^3/uL (150-400); Red Blood Cell Count 3.53 X10^6/uL (4.0-5.2); Red Cell Distribution Width 13.5 % (11.6-14.8); White Blood Cell Count 9.5 X10^3/uL (4.5-11.0)
[2024-07-01 05:59] LABS: BUN Creatinine Ratio 25.5 (6-22); Blood Urea Nitrogen 13 mg/dL (7-17); Calcium 7.5 mg/dL (8.4-10.2); Carbon Dioxide 23 mmol/L (22-32); Chloride 108 mmol/L (98-107); Estimated Glomerular Filt Rate > 60 mL/min (>60); Glucose 142 mg/dL (80-110); HEMOLYSIS < 15 (0-50); Potassium 3.9 mmol/L (3.4-5.1); Sodium 135 mmol/L (137-145)
--- NOTE | 2024-07-01 07:58 | P.PN_ITS ---
Subjective Subjective Date Patient Seen: 07/01/24 Time Patient Seen: 07:58 Interval history: Patient seen and evaluated this morning resting comfortably in bed patient still has oxygen on. Patient was able to get up in the chair yesterday. She is eating okay. Good urination. No bowel movement yet. She is complaining of left leg pain which has been chronic where she is seen Dr. Coulter and had some injections for. She is still coughing quite a bit has a sore throat. She finds that she has some pain when she coughs underneath her ribs. She is worried about swallowing and difficulty with shortness of breath. Laboratory tests CT scans chest x-ray were reviewed. Dr. Juarez's notes were reviewed. Exam Vital Signs (past 8 hours): - 07/01/24 03:00 Temperature 99.2 F Pulse Rate 63 Respiratory Rate 18 Blood Pressure 146/77 H Pulse Oximetry 93 Oxygen Flow Rate 2 Fraction of Inspired Oxygen 28 SaO2/FiO2 Ratio 332 Oxygen Delivery Method Nasal Cannula Oxygen Flow Rate 2 Narrative Exam Narrative: Gen.: Alert intermittent coughing HEENT: Pupils equal round and reactive or mucosa is moist Cardio: S1-S2 systolic murmur Respiratory: Lungs decreased breath sounds at bases mild increased work of breathing Abdomen: Soft nontender. Some mild upper rib tenderness Extremities: Full range of motion some trace edema. Objective Labs 07/01/24 05:25 07/01/24 05:25 Labs: Laboratory Results - last 24 hr 07/01/24 05:25 WBC 9.5 D RBC 3.53 L Hgb 12.4 Hct 36.0 MCV 102.0 H MCH 35.1 H MCHC 34.4 RDW 13.5 Plt Count 68 L Neut % (Auto) 86.8 H Lymph % (Auto) 4.8 L [place] % (Auto) 8.1 Eos % (Auto) 0.0 L Baso % (Auto) 0.3 Neut # (Auto) 8200 H Lymph # (Auto) 500 L [place] # (Auto) 800 Eos # (Auto) 0 Baso # (Auto) 0 Sodium 135 L Potassium 3.9 Chloride 108 H Carbon Dioxide 23 BUN 13 Creatinine 0.51 L Estimated GFR > 60 BUN/Creatinine Ratio 25.5 H Glucose 142 H Calcium 7.5 L PFSH Medical History Lumbar spondylosis SI (sacroiliac) joint dysfunction Lumbar radiculopathy COVID-19 virus infection Impacted cerumen, left ear Kyphosis Lower urinary tract symptoms (LUTS) Postmenopausal atrophic vaginitis Obstructive sleep apnea syndrome Snoring Excessive daytime sleepiness Facet arthropathy, lumbosacral Oral candidiasis BCC (basal cell carcinoma of skin) Shoulder pain Lumbar spine pain Foot pain (1998) Cervical spine disease Partial blindness (1996) Polio (195) Chronic back pain (2011) Scoliosis Urinary incontinence Asthma Alcohol abuse Surgical History Anesthesia Status post hammer toe correction (~1999) History of cataract removal with insertion of prosthetic lens Status post bunionectomy (~1999) Family History Brother Overdose Father Heart disease Hypertension CAD (coronary artery disease) Myocardial infarction Grandfather Parkinsons Grandmother Dementia Mother Dementia Arthritis Bronchitis Ovarian cancer Grandfather No problems noted. Grandmother No problems noted. Social History marital status: household members: spouse Smoking Status: Former smoker alcohol intake: never substance use type: amphetamines Assessment & Plan Assessment and plan (1) Influenza A: Status: Acute Plan Influenza a with respiratory failure due to bronchitis patient requiring oxygen she has not on home oxygen. Plan decrease oxygen today and change to oral steroids.. Hopefully she can be weaned off her oxygen She has some mild chronic lung disease which has been exacerbated due to the influenza. Patient is improving albeit slowly. Anticipate hospitalization another day or 2. Patient's CT of chest shows no acute pulmonary emboli. Some bronchial thickening consistent with influenza pneumonitis. Elevated troponins. Troponins are trended down to normal. EKG is reassuring. No significant cardiac related chest pain. Thrombocytopenia. Patient has some mild low platelet counts in the past. Currently her platelet counts are significantly lower. Possibly viral mediated or other pathology. Will continue to track and trend they are not significantly low at this point where they would cause problems. Hypertension. Patient's blood pressure is well controlled continue with antihypertensive Hyperlipidemia. Patient is on her normal medication for this. DVT prophylaxis with SCDs. Code status is full code. Plan. Decrease oxygen today convert to oral steroids up and ambulate. Stool softener will be provided discharge later today or tomorrow. Time-Based Coding :: [TOTAL MINUTES] spent with patient and on the chart (including review of chart, obtaining history, exam, reviewing outside data, placing orders, documenting exam and treatment plan, and counseling patient) on [DATE].
[2024-07-01 08:00] VITALS: BP 139/74; PULSE 61; RESP 18; TEMP 37.1; O2SAT 92
[2024-07-01 08:47] VITALS: BP 139/74; PULSE 58
[2024-07-01] MEDS: GUAIFENESIN/DM 200/20 MG/10 ML UDC PO (08:47)
[2024-07-01] MEDS: predniSONE 20 MG TABLET 60 MG PO (08:47)
[2024-07-01] MEDS: BENZOCAINE/MENTHOL 1 LOZ PKT 1 EACH PO (08:47)
[2024-07-01] MEDS: polyethylene glycoL 3350 17 GM POWD.PACK PO (08:47)
[2024-07-01] MEDS: lisinopriL 10 MG TABLET PO (08:47)
[2024-07-01] MEDS: CHOLECALCIFEROL (VITAMIN D3) 1,000 UNIT TABLET 1000 UNIT PO (08:48)
[2024-07-01 12:00] VITALS: BP 122/74; PULSE 66; RESP 18; TEMP 37.2; O2SAT 91
--- NOTE | 2024-07-01 13:18 | CM.DPC ---
DCP Cont. Reviewed EMR and team rounds for status updates. Pt is still requiring O2 and steroids for respiratory management and tx. Likely another few days before she is ready for home d/c.
--- NOTE | 2024-07-01 13:22 | CM.DPC ---
DCP Cont. Reviewed EMR and team rounds for status updates. Pt continues to be very ill, likely will need another few days before she is stable enough for home d/c. Monitoring for d/c needs.
--- NOTE | 2024-07-01 14:23 | PM.DS.1 ---
History of Present Illness History of Present Illness Chief complaint: difficulty swallowing, fever, weakness Discharge Providers Provider Date of admission: 07/01/24 10:59 Discharge Date: 07/02/24 Primary care physician: Dennys Israel MD Discharge provider: Dennys Israel MD Summary Hospital Course Discharge Diagnosis: Influenza A Acute respiratory failure COPD with exacerbation Cardiac enzyme elevation Thrombocytopenia Hypertension Hyperlipidemia Hospital Course: Influenza a with respiratory failure due to bronchitis patient requiring oxygen she has not on home oxygen. Patient was admitted the hospital started on oxygen therapy IV fluids and steroids due to her COPD. Patient was not started on influenza chemo prophylaxis. Patient over the ensuing 48 hours had improvement of her respiratory status. Gradual weaning of her oxygen. Her steroids were transitioned from IV steroids to oral steroids. She was provided albuterol inhaler and steroid inhaler during her hospital stay. Elevated troponins. Troponins are trended down to teena during hospital stay. EKG is reassuring. No significant cardiac related chest pain. Cardiac enzymes were not significantly elevated. Probably due to underlying irritation inflammation of myocardium due to respiratory illness Thrombocytopenia. Patient has some mild low platelet counts in the past. Currently her platelet counts are significantly lower. Possibly viral mediated or other pathology. Will continue to track and trend they are not significantly low at this point where they would cause problems. Hypertension. Patient's blood pressure is well controlled continue with antihypertensive at discharge Hyperlipidemia. Patient is on her normal medication for this visit during the hospital stay Exam Vital Signs (past 8 hours): - 07/01/24 08:00 07/01/24 08:47 07/01/24 09:18 Temperature 98.7 F Pulse Rate 61 58 L Respiratory Rate 18 Blood Pressure 139/74 139/74 Pulse Oximetry 92 Oxygen Delivery Method Nasal Cannula Oxygen Flow Rate 2 07/01/24 11:23 07/01/24 12:00 Temperature 99 F Pulse Rate 66 Respiratory Rate 18 Blood Pressure 122/74 Pulse Oximetry 91 Oxygen Delivery Method Oxygen Flow Rate 2 0 Fraction of Inspired Oxygen 28 SaO2/FiO2 Ratio 332 Oxygen Delivery Method Nasal Cannula Oxygen Flow Rate 0 Objective Labs 07/01/24 05:25 07/01/24 05:25 Labs: Laboratory Results - last 24 hr 07/01/24 05:25 WBC 9.5 D RBC 3.53 L Hgb 12.4 Hct 36.0 MCV 102.0 H MCH 35.1 H MCHC 34.4 RDW 13.5 Plt Count 68 L Neut % (Auto) 86.8 H Lymph % (Auto) 4.8 L [place] % (Auto) 8.1 Eos % (Auto) 0.0 L Baso % (Auto) 0.3 Neut # (Auto) 8200 H Lymph # (Auto) 500 L [place] # (Auto) 800 Eos # (Auto) 0 Baso # (Auto) 0 Sodium 135 L Potassium 3.9 Chloride 108 H Carbon Dioxide 23 BUN 13 Creatinine 0.51 L Estimated GFR > 60 BUN/Creatinine Ratio 25.5 H Glucose 142 H Calcium 7.5 L PFSH Medical History Lumbar spondylosis SI (sacroiliac) joint dysfunction Lumbar radiculopathy COVID-19 virus infection Impacted cerumen, left ear Kyphosis Lower urinary tract symptoms (LUTS) Postmenopausal atrophic vaginitis Obstructive sleep apnea syndrome Snoring Excessive daytime sleepiness Facet arthropathy, lumbosacral Oral candidiasis BCC (basal cell carcinoma of skin) Shoulder pain Lumbar spine pain Foot pain (1998) Cervical spine disease Partial blindness (1996) Polio (1951) Chronic back pain (2011) Scoliosis Urinary incontinence Asthma Alcohol abuse Surgical History Anesthesia Status post hammer toe correction (~1999) History of cataract removal with insertion of prosthetic lens Status post bunionectomy (~1999) Family History Brother Overdose Father Heart disease Hypertension CAD (coronary artery disease) Myocardial infarction Grandfather Parkinsons Grandmother Dementia Mother Dementia Arthritis Bronchitis Ovarian cancer Grandfather No problems noted. Grandmother No problems noted. Social History marital status: household members: spouse Smoking Status: Former smoker alcohol intake: never substance use type: amphetamines Discharge Plan Discharge Plan Patient Disposition: Home Provider Discharge Comment: F/U with Dr Israel next week on July 17 at 3:00pm. Please arrive 15 minutes prior to appt. for check in. Discharge orders & Medications Prescriptions: New prednisone 20 mg tablet See Rx Instructions .ROUTE .COMPLEX Qty: 30 0RF Rx Instructions: 60m mg daily for 3 days 40mg daily for 3 days 20mg daily for 3 days 10 mg daily for 3 days codeine-guaifenesin 10-100 mg/5 mL liquid 5 ml PO Q6H PRN (Reason: cough) Qty: 60 0RF Continued cholecalciferol (vitamin D3) 25 mcg (1,000 unit) capsule 25 mcg PO DAILY omega 5-ecg-vsj-fish oil 500-1,000 mg capsule 1 cap PO TID vitamin B complex [B Complex-Vitamin B12] Tablet 1 tab PO DAILY amitriptyline 10 mg tablet 10 mg PO ONCE PM Qty: 30 3RF albuterol sulfate 90 mcg/actuation HFA aerosol inhaler 2 puff inhalation BEDTIME PRN (Reason: shortness of breath or wheezing) Qty: 6.7 1RF Rx Instructions: Inhale 2 puffs using spacer at bedtime before using Fluticasone Qvar RediHaler 40 mcg/actuation HFA aerosol breath activated 1 inh inhalation BEDTIME Qty: 10.6 0RF Rx Instructions: Inhale 1 puff using spacer and after using Albuterol at bedtime. Rinse mouth out well after use lisinopril 10 mg tablet 10 mg PO DAILY Qty: 90 3RF (DME) Flexichamber Spacer See Rx Instructions .Route Qty: 1 0RF Rx Instructions: Use daily with inhlaers as directed Discontinued celecoxib 200 mg capsule 200 mg PO BID PRN (Reason: Pain (Scale Score 7-10)) Rx Instructions: TAKE ONE CAPSULE BY MOUTH TWICE DAILY NEEDED FOR PAIN Follow up/Referrals: Dennys Israel MD [Primary Care Provider] - 07/17/24 3:00 pm (Appt:07/17 @ 3:[address] Israel please arrive 15 min prior to your scheduledd appointment time ) Discharge Health Status Multidrug resistant organism: No MDRO Diet/Activity/Treatments Diet: Diet as Tolerated Visit Report/Discharge Packet Instructions: DI for Influenza -- Adult, Prednisone, Guaifenesin Stand Alone Forms: Patient Portal/API, Stroke Signs & Symptoms Discharge Data Primary Care Provider: Dennys Israel PROFMIKE Charge Codes Discharge inpatient/observation: [id number]
--- NOTE | 2024-07-01 16:13 | PC.NURSE ---
Addendum entered by Nolan Leslie R.N. 07/01/24 16:42: spouse arrived, belongings taken out by . Patient was escorted out to private vehicle. Patient left in stable condition, VSS. Original Note: Patient teaching done with patient at bedside. Aware of prescriptions sent to pharm by Dr. Israel. Patient and nurse reviewed sched. for steroids and how to taper off in what time frame. Patient states understanding. IV and tele removed w/ out difficulty. Patient was able to dress herself. Belongings gathered by this nurse and placed in belongings bag. Waiting for arrival of her to olive picker. Dr. Israel arrived at bedside to say farewell to patient. Pt's f/u appt was sched. by [facility] and date and time was noted in d/c paperwork and patient was verbally informed.
== END 2024-07-01 16:35 | disposition home or self-care (01) | DRG 193 ==
LOC: ED 18:20 → AC 18:21
PROVIDERS: Admitting Provider Internal Medicine; Emergency Provider Emergency Medicine; PCP Family Medicine; Referring Provider Emergency Medicine; Visit Provider Family Medicine
DX: J10.1 Influenza due to other identified influenza virus with other respiratory manifestations (principal); J96.01 Acute respiratory failure with hypoxia; J44.1 Chronic obstructive pulmonary disease with (acute) exacerbation; E86.0 Dehydration; I10 Essential (primary) hypertension; E78.5 Hyperlipidemia, unspecified; R79.89 Other specified abnormal findings of blood chemistry; D69.6 Thrombocytopenia, unspecified; Z87.891 Personal history of nicotine dependence
CPT/HCPCS: 36415; 70491; 71045; 71275; 80048; 80053; 82550; 83605; 83690; 83880; 84145; 84484; 85007; 85025; 85379; 85610; 85730; 87040; 87070; 87633; 87651; 93005; 93010; 94640; 96361; 96365; 96368; 96375; 99223; 99232; 99238; 99285; G0378; J0134; J1885; J2405; J2543; J2919; Q9967

== ENCOUNTER → 2024-07-31 12:17 | Outpatient (CLI) | payer MEDICARE, SELFPAY ==
[2024-06-29 20:06] VITALS: BMI 22.8
== END ==
LOC: RESP 12:18
PROVIDERS: PCP Family Medicine; Referring Provider Family Medicine; Visit Provider Family Medicine
DX: R06.02 Shortness of breath (principal); Z87.891 Personal history of nicotine dependence
CPT/HCPCS: 94060; 94726; 94729

== ENCOUNTER → 2024-08-07 10:52 | Outpatient (CLI) | payer MEDICARE, SELFPAY ==
[2024-06-29 20:06] VITALS: BMI 22.8
[2024-08-07 15:08] LABS: Appearance Urine UA CLOUDY; Bilirubin Urine UA NEGATIVE (NEGATIVE); Color Urine UA YELLOW; Glucose Urine UA NEGATIVE (Negative); Ketones Urine UA TRACE (NEGATIVE); Leukocyte Esterase Urine UA 2+ (NEGATIVE); Nitrite Urine UA NEGATIVE (Negative); Occult Blood Urine UA TRACE-INTACT (Negative); Protein Urine UA TRACE (Negative); Urobilinogen Urine UA 0.2 E.U./dL (0.2)
[2024-08-07 15:11] LABS: pH Urine UA 5.5 (4.5-8.0)
[2024-08-07 15:17] LABS: Bacteria Urine Many (>30); Culture Indicated Urine Specimen Cultured; RBC Urine None Seen (0-5/HPF); Squamous Epithelial Cell Urine 1-5 /HPF (0-5/HPF); Urine Volume 10mL (spun); WBC Urine >100/HPF (0-5/HPF)
== END ==
LOC: LAB 10:53
PROVIDERS: PCP Family Medicine; Referring Provider Family Medicine; Visit Provider Family Medicine
DX: R30.0 Dysuria (principal)
CPT/HCPCS: 81001; 87077; 87086

== ENCOUNTER → 2025-06-04 09:14 | Outpatient (CLI) | payer MEDICARE, SELFPAY ==
[2024-06-29 20:06] VITALS: BMI 22.8
--- NOTE | 2025-06-04 09:16 | DI.MG.S_ITS ---
MM screening mammo BI: 06/04/2025. BI-RADS: 2 CLINICAL: 79-year old female for bilateral screening mammogram. Tyrer-Cuzick lifetime risk of 1.3%. No personal or first-degree family history of breast cancer. Current reported family history of breast cancer: maternal aunt. The patient had a prior right breast biopsy. PRIOR EXAMS 05/22/2024, 05/16/2023, 05/16/2022, 12/19/2021. MAMMOGRAPHY TECHNIQUE: 2D and 3D (tomosynthesis) digital mammographic views obtained, with additional images as needed for full coverage. Current study was also evaluated with a Computer Aided Detection (CAD) system. DENSITY C. The breasts are heterogeneously dense, which may obscure small masses. MAMMOGRAPHY FINDINGS Right: Biopsy marker present on the right. There are no suspicious masses, calcifications, or other findings in the breast. Left: No suspicious mass, asymmetry, microcalcification, or other abnormality seen. IMPRESSION: Right * No evidence of malignancy with benign findings. Left * No evidence of malignancy. RECOMMENDATIONS Bilateral * Annual screening mammography. OVERALL ASSESSMENT CATEGORY BI-RADS-2: Benign. The [employer] recommends annual screening mammography beginning at age 40 for women with average risk of breast cancer. ELECTRONICALLY SIGNED: Terri Bella M.D. on 06/04/2025 at 01:37:23 PM PT Interpreting Station ID: [id number]
== END ==
LOC: MAMMO 09:15
PROVIDERS: PCP Family Medicine; Referring Provider Family Medicine; Visit Provider Family Medicine
DX: Z12.31 Encounter for screening mammogram for malignant neoplasm of breast (principal); R92.333 Mammographic heterogeneous density, bilateral breasts; Z80.3 Family history of malignant neoplasm of breast
CPT/HCPCS: 77063; 77067

== ENCOUNTER 2025-10-05 08:51 | Day surgery (SDC) | payer MEDICARE, SELFPAY ==
[2024-06-29 20:06] VITALS: BMI 22.8
[2025-09-29 11:23] VITALS: BMI 21.9
[2025-10-05] MEDS: LACTATED RINGERS 1,000 ML 42 ML IV (09:16)
[2025-10-05 09:39] VITALS: BP 142/70; PULSE 68; RESP 16; TEMP 37.1; O2SAT 99
--- NOTE | 2025-10-05 09:44 | PM.HP.IH.1 ---
History of Present Illness History of Present Illness Date Patient Seen: 10/05/25 Chief complaint: SDC Narrative: History of colon polyps need for follow-up colonoscopy [facility] Medical History HTN (hypertension) Varicose vein of leg Chronic venous insufficiency OAB (overactive bladder) Lumbar spondylosis SI (sacroiliac) joint dysfunction Lumbar radiculopathy COVID-19 virus infection Impacted cerumen, left ear Kyphosis Lower urinary tract symptoms (LUTS) Obstructive sleep apnea syndrome Snoring Excessive daytime sleepiness Oral candidiasis BCC (basal cell carcinoma of skin) Shoulder pain Lumbar spine pain Foot pain (1998) Cervical spine disease Partial blindness (1996) Polio (195) Chronic back pain (2011) Scoliosis Urinary incontinence Asthma Alcohol abuse Surgical History Anesthesia Status post hammer toe correction (~1999) History of cataract removal with insertion of prosthetic lens Status post bunionectomy (~1999) Family History Brother Overdose Father Heart disease Hypertension CAD (coronary artery disease) Myocardial infarction Grandfather Parkinsons Grandmother Dementia Mother Dementia Arthritis Bronchitis Ovarian cancer Grandfather No problems noted. Grandmother No problems noted. Social History marital status: household members: spouse Smoking Status: Former smoker alcohol intake: never substance use type: amphetamines Meds Home Medications and Allergies Home Medications ?Medication ?Instructions ?Recorded ?Confirmed ?Type cholecalciferol (vitamin D3) 25 25 mcg PO DAILY 05/04/22 08/28/24 History mcg (1,000 unit) capsule omega 1-hlw-tgx-fish oil 500 mg 1 cap PO TID 05/04/22 10/05/25 History (200mg-300mg)-1,000 mg capsule vitamin B complex (B 1 tab PO DAILY 05/04/22 10/05/25 History Complex-Vitamin B12 tablet) calcium carbonate (Calcium 600) 1,200 mg PO DAILY 07/03/24 10/05/25 History multivitamin (One Daily 1 tab PO DAILY 07/03/24 10/05/25 History Multivitamin tablet) atorvastatin 20 mg tablet 20 mg PO BEDTIME #90 tabs 01/05/25 10/05/25 Rx losartan 50 mg tablet 50 mg PO DAILY #90 tabs 05/25/25 10/05/25 Rx Allergies Allergy/AdvReac Type Severity Reaction Status Date / Time No Known Drug Allergies Allergy Verified 10/05/25 09:25 Exam Vital Signs (past 8 hours): - 10/05/25 09:39 Temperature 98.8 F Pulse Rate 68 Respiratory Rate 16 Blood Pressure 142/70 H Pulse Oximetry 99 Oxygen Delivery Method Room Air Oxygen Delivery Method Room Air Narrative Exam Narrative: Oropharynx free of lesions Chest clear to auscultation percussion Cardiac exam reveals no S3 or murmur Assessment & Plan Assessment and plan (1) Colon polyps: Status: Acute Time-Based Coding :: [TOTAL MINUTES] spent with patient and on the chart (including review of chart, obtaining history, exam, reviewing outside data, placing orders, documenting exam and treatment plan, and counseling patient) on [DATE]. PROFEE Teletype Technician Document charge(s): No
--- NOTE | 2025-10-05 09:46 | PM.OP.COLON ---
Operative Date/Time/Diagnoses Date of procedure: 10/05/25 Pre-op diagnosis: Indication history of colon polyps Post-op diagnosis: same Procedure & Clinicians Study performed: Colonoscopy Same procedure(s) as scheduled: Yes Indications: History of colon polyps Surgeon: Jack Franco Anesthesia Type: MAC +/- Procedure Notes Procedure in detail: After informed consent was obtained the patient was placed in left lateral decubitus position. The video colonoscope was placed in the rectum slowly advanced cecum. Preparation was good. On slow withdrawal mucosa was carefully examined. The scope was removed. The patient tolerated procedure well. Blood loss none Complications none Sedation mac Findings 1.
--- NOTE | 2025-10-05 10:03 | PM.OP.COLON ---
Operative Date/Time/Diagnoses Date of procedure: 10/05/25 Time of procedure: 10:05 Pre-op diagnosis: History of colon polyps Post-op diagnosis: same Procedure & Clinicians Study performed: Colonoscopy Same procedure(s) as scheduled: Yes Surgeon: Jack Franco Anesthesia Type: MAC +/- Procedure Notes Procedure in detail: After informed consent was obtained the patient was placed in left lateral decubitus position. The video colonoscope was introduced the rectum slowly advanced. Almost immediately there was stool which was liquid to semi solid. Photographs were taken. The scope was passed to approximately the left colon. The scope was removed. The patient tolerated procedure well. Blood loss none Complications none Findings Colonoscopy aborted due to poor prep Patient will need to be scheduled at another day with a double dose preparation. Estimated Blood Loss: 0 Complications: none
--- NOTE | 2025-10-05 10:03 | SUR.OPER ---
aborted due to bad prep, surgeon unable to visualize area
[2025-10-05 10:05] VITALS: BP 101/50; PULSE 73; RESP 20; TEMP 36.2; O2SAT 95
[2025-10-05 10:10] VITALS: BP 92/55; PULSE 60; RESP 22; O2SAT 96
[2025-10-05 10:17] VITALS: BP 104/55; PULSE 73; RESP 20; TEMP 36.8; O2SAT 95
[2025-10-05 10:27] VITALS: BP 123/58; PULSE 67; RESP 16; O2SAT 98
== END 2025-10-05 11:09 | disposition home or self-care (01) ==
PROVIDERS: Internal Medicine Gastroenterology; PCP Family Medicine; Referring Provider Family Medicine; Visit Provider Family Medicine
PROC: 0DJD8ZZ Inspection of Lower Intestinal Tract, Via Natural or Artificial Opening Endoscopic (ICD-10-PCS; CPT 45378; principal; 2025-10-05 10:00)
DX: Z12.11 Encounter for screening for malignant neoplasm of colon (principal); Z86.0100 Personal history of colon polyps, unspecified; Z87.891 Personal history of nicotine dependence; Z53.09 Procedure and treatment not carried out because of other contraindication
CPT/HCPCS: G0105; J2704; J7120